=== PATIENT | male | born 1965 | race Caucasian/White ===

== ENCOUNTER → 2018-10-23 | Outpatient (CLI) | payer OTHER, MEDICAID ==
--- NOTE | 2018-10-23 16:43 | RADIOLOGY REPORT (SQ) ---
EXAM DESCRIPTION: KNEE BILATERAL 1-2 VIEWS COMPLETED DATE/TIME: 10/23/2018 4:30 pm REASON FOR STUDY: BILATERAL PRIMARY OSTEOARTHRITIS OF KNEE M17.0 BILATERAL PRIMARY OSTEOARTHRITIS O F KNEE COMPARISON: None. NUMBER OF VIEWS: Two views. TECHNIQUE: AP and lateral radiographic images acquired of the right and left knee. LIMITATIONS: None. FINDINGS: MINERALIZATION: Normal. BONES: No acute fracture or dislocation. No worrisome bone lesions. No significant osteophytes. JOINT: There is joint space narrowing in the patellofemoral compartments bilaterally. Medial and lat eral joint spaces are symmetric and fairly well-maintained. OTHER: No other significant finding. IMPRESSION: Joint space narrowing in the patellofemoral compartments bilaterally. No other signific ant findings. TECHNICAL DOCUMENTATION: JOB ID: [id number]- All Rights Reserved Reading location - IP/workstation name: [email or web address]
== END ==
LOC: OD 16:12
PROVIDERS: ATTEND Internal Medicine
DX: M17.0 Bilateral primary osteoarthritis of knee (principal)

== ENCOUNTER 2019-09-25 13:15 | Inpatient (IN) | payer MEDICARE, MEDICAID ==
[2019-09-25 15:23] LABS: ALBUMIN 3.5 g/dL (3.5-5.0); ALKALINE PHOSPHATASE 67 U/L (38-126); ANION GAP 10 (5-19); ASPARTATE AMINO TRANSFERASE 16 U/L (17-59); BLOOD UREA NITROGEN 57 mg/dL (7-20); CALCIUM 8.5 mg/dL (8.4-10.2); CARBON DIOXIDE 17 mmol/L (22-30); CHLORIDE 106 mmol/L (98-107); GLUCOSE 133 mg/dL (75-110); POTASSIUM 4.8 mmol/L (3.6-5.0); TOTAL PROTEIN 6.1 g/dL (6.3-8.2)
[2019-09-25 15:24] LABS: BILIRUBIN,TOTAL < 0.1 mg/dL (0.2-1.3)
[2019-09-25 15:25] LABS: ALCOHOL < 10 mg/dL (NONE DETECTED)
[2019-09-25 15:38] LABS: MEAN CORPUSCULAR HEMOGLOBIN 28.2 pg (27.0-33.4); MEAN CORPUSCULAR HGB CONC 31.5 g/dL (32.0-36.0); MEAN CORPUSCULAR VOLUME 89 fl (80-97); PLATELET COUNT 207 10^3/uL (150-450); RED BLOOD COUNT 1.44 10^6/uL (4.35-5.55); RED CELL DISTRIBUTION WIDTH 24.8 % (11.5-14.0); WHITE BLOOD COUNT 11.3 10^3/uL (4.0-10.5)
[2019-09-25 15:58] LABS: HEMATOCRIT 12.9 % (37.9-51.0)
[2019-09-25 16:00] LABS: HEMOGLOBIN 4.1 g/dL (13.5-17.0)
[2019-09-25 16:02] LABS: ABSOLUTE LYMPHOCYTES# (MANUAL) 1.1 10^3/uL (0.5-4.7); ABSOLUTE MONOCYTES # (MANUAL) 0.5 10^3/uL (0.1-1.4); ANISOCYTOSIS 3+; BASOPHILS % (MANUAL) 0 % (0-2); EOSINOPHILS % (MANUAL) 0 % (0-6); LYMPHOCYTES % (MANUAL) 10 % (13-45); MONOCYTES % (MANUAL) 4 % (3-13); PLATELET COMMENT ADEQUATE; PLATELET LARGE PRESENT; SEGMENTED NEUTROPHILS % (MAN) 86 % (42-78); TOTAL CELLS COUNTED 100
[2019-09-25 16:04] LABS: HYPOCHROMASIA 1+; OVALOCYTES 1+; POIKILOCYTOSIS 1+; POLYCHROMASIA SLIGHT; TARGET CELLS SLIGHT
[2019-09-25] MEDS ORDERED: NORMAL SALINE 250 ML IV PRN ×6 (16:20→22:46)
[2019-09-25] MEDS ORDERED: ACETAMINOPHEN 325 MG TABLET PO PRN (16:20)
[2019-09-25] MEDS ORDERED: PANTOPRAZOLE SODIUM 40 MG VIAL IV ONE ×2 (16:30→23:25)
--- NOTE | 2019-09-25 17:42 | RADIOLOGY REPORT (SQ) ---
EXAM DESCRIPTION: CT ABD/PELVIS NO ORAL OR IV IMAGES COMPLETED DATE/TIME: 09/25/2019 4:18 pm REASON FOR STUDY: gibleed/melena/anemia. Diffuse abdominal pain. No previous surgery. COMPARISON: None. TECHNIQUE: CT scan of the abdomen and pelvis performed without intravenous or oral contrast. Images reviewed with lung, soft tissue, and bone windows. Reconstructed coronal and sagittal MPR images revi ewed. All images stored on PACS. All CT scanners at this facility use dose modulation, iterative reconstruction, and/or weight based d osing when appropriate to reduce radiation dose to as low as reasonably achievable (ALARA). [facility]: Dose Right [facility]: CareDose [facility]: Dose Right [facility]: Teradose 4D [facility]: [employer] RADIATION DOSE: CT Rad equipment meets quality standard of care and radiation dose reduction techniq ues were employed. CTDIvol: 4.9 mGy. DLP: 266 mGy-cm.mGy. LIMITATIONS: None. FINDINGS: LOWER CHEST: No significant findings. No nodules or infiltrates. NON-CONTRASTED LIVER, SPLEEN, ADRENALS: Evaluation limited by lack of IV contrast. No identified sign ificant masses. PANCREAS: No masses. No peripancreatic inflammatory changes. GALLBLADDER: No identified stones by CT criteria. No inflammatory changes to suggest cholecystitis. RIGHT KIDNEY AND URETER: No suspicious masses. Assessment limited by lack of IV contrast. No signif icant calcifications. No hydronephrosis or hydroureter. LEFT KIDNEY AND URETER: Severely atrophic left kidney. No renal or ureteral calculi. No hydronephro sis. AORTA AND RETROPERITONEUM: No aneurysm. No retroperitoneal masses or adenopathy. BOWEL AND PERITONEAL CAVITY: Colonic diverticulosis without evidence of diverticulitis. No bowel wal l thickening. No significant inflammatory change. No bowel obstruction. APPENDIX: Normal. PELVIS, BLADDER, AND ABDOMINAL WALL:No abnormal masses. No free fluid. Bladder normal. BONES: Spondylosis and degenerative disc disease in the thoracic and lumbar spine. No suspicious bon e lesions. OTHER: No other significant finding. IMPRESSION: 1. Atrophic left kidney. No renal or ureteral calculi. No hydronephrosis. 2. Colonic diverticulosis without evidence of diverticulitis. No evidence of bowel obstruction or ma ss. COMMENT: Quality ID # [id number]: Final reports with documentation of one or more dose reduction techniques (e.g., Automated exposure control, adjustment of the mA and/or kV according to patient size, use of iterative reconstruction technique) TECHNICAL DOCUMENTATION: JOB ID: [id number] [employer]- All Rights Reserved Reading location - IP/workstation name: [email or web address]
--- NOTE | 2019-09-25 19:18 | EKG REPORT ---
SEVERITY:- ABNORMAL ECG - SINUS RHYTHM PROBABLE LEFT ATRIAL ABNORMALITY INCOMPLETE RIGHT BUNDLE BRANCH BLOCK : Confirmed by: Meliza Mclalister MD 25-Sep-2019 19:18:22
[2019-09-25 19:40] LABS: INTERNATIONAL RATION (INR) 1.08; PARTIAL THROMBOPLASTIN TIME 28.2 SEC (23.5-35.8)
[2019-09-25] MEDS ORDERED: LIDOCAINE 0.5% INJ-PF (5 MG/ML) 50 ML SDV NEB ONE (20:22)
[2019-09-25] MEDS ORDERED: NORMAL SALINE 1000 ML 1,000 ML IV ONE (20:27)
--- NOTE | 2019-09-25 21:54 | ER Document Report ---
Entered by PARAS LEMON SCRIBE 09/25/19 0443 Acting as scribe for:SILVER NAVA MD ED General - General Chief Complaint: Abdominal Pain Stated Complaint: NAUSEA,VOMITING,WEAKNESS Primary Care Provider: VINICIO MIRANDA MD [Primary Care Provider] - Follow up as needed Information source: Patient Notes: This 54-year-old male presents to the emergency department complaining of dark stools for the past three days. Patient reports associated abdominal pain and generalized weakness. Patient describes his abdominal pain as diffuse. Patient explains that he has had ulcers since he was [age] years old. Patient states that he has not had any issues with ulcers for decades. TRAVEL OUTSIDE OF THE [place] IN LAST 30 DAYS: No - Related Data Allergies/Adverse Reactions: No Known Allergies Allergy (Verified 09/25/19 15:18) Past Medical History - General Information source: Patient - Social History Smoking Status: Current Every Day Smoker Cigarette use (# per day): Yes Chew tobacco use (# tins/day): No Frequency of alcohol use: None Family History: Reviewed & Not Pertinent Patient has homicidal ideation: No GI Medical History: Reports: Hx Ulcer Surgical Hx: Negative Review of Systems - Review of Systems Constitutional: See HPI, Weakness EENT: No symptoms reported Cardiovascular: No symptoms reported Respiratory: No symptoms reported Gastrointestinal: See HPI, Abdominal pain, Black stools Genitourinary: No symptoms reported Male Genitourinary: No symptoms reported Musculoskeletal: No symptoms reported Skin: No symptoms reported Hematologic/Lymphatic: No symptoms reported Neurological/Psychological: No symptoms reported -: Yes All other systems reviewed and negative Physical Exam - Vital signs Vitals: Temp Pulse BP 97.9 F 106 H 118/44 L 09/25/19 14:09 09/25/19 14:09 09/25/19 14:09 - Notes Notes: Physical Exam: General: Alert, appears well. HEENT: Normocephalic. Atraumatic. PERRL. Extraocular movements intact. Oropharynx clear. Conjunctiva pale. Neck: Supple. Non-tender. Respiratory: No respiratory distress. Clear and equal breath sounds bilaterally. Cardiovascular: Regular rate and rhythm. Abdominal: Normal Inspection. Non-tender. No distension. Normal Bowel Sounds. Rectal: Melena stools that is guaiac positive. Back: No gross abnormalities. Extremities: Moves all four extremities. Upper extremities: Normal inspection. Normal ROM. Capillary refill sluggish. Pale nail beds. Lower extremities: Normal inspection. No edema. Normal ROM. Neurological: Normal cognition. AAOx4. Normal speech. Psychological: Normal affect. Normal Mood. Skin: Warm. Dry. Pale. conjunctive pale cap refil sluggish pale nail beds. stool melena guaiac postivie. Course - Re-evaluation Re-evalutation: 09/25/19 20:24 Patient hemodynamically stable not showing any cardiovascular compromise of his anemia at this time. 09/25/19 20:[address] Miranda who is the primary attending of patient. Dr. Miranda is aware that Dr. Candelaria is medical communication specialist as a surgical callus this weekend and is available to do endoscopy of patient and track patient with him as needed. Dr. Miranda decided that he was placing patient in the IMCU. Case was discussed with Dr. Candelaria the on-call surgicaist, and he recommended that we put an NG tube down to determine if there is an upper GI bleed and if so I would notify him of such. Thus far the patient has been refusing and uncooperative with the NG tube therefore were given him a lidocaine nebulizer to anesthetize back of his throat so he would allow us to keep the NG tube in. Once that procedure is done we will then know whether or not patient has any active upper GI bleed and to notify Dr. Candelaria if that is present. Inasmuch as Dr. Candelaria requested that patient be placed in the ICU Dr. Miranda at the my discussion with him said he was placing patient in the IMCU. 09/25/19 20:32 Currently patient is still pending transfusion of packed red blood cells as well as NG tube placement. Patient remains hemodynamically stable. - Vital Signs Vital signs: Temp Pulse Resp BP Pulse Ox 99.7 F 84 16 119/51 L 100 09/25/19 21:25 09/25/19 21:25 09/25/19 21:25 09/25/19 21:25 09/25/19 21:25 09/25/19 20:24 Vital signs as reported blood pressure stable tachycardic at 106. - Laboratory Result Diagrams: 09/25/19 15:24 09/25/19 14:35 Laboratory results interpreted by me: 09/25/19 09/25/19 09/25/19 14:35 15:14 15:24 WBC 11.3 H RBC 1.44 L Hgb 4.1 L* Hct 12.9 L* MCHC 31.5 L RDW 24.8 H Seg Neuts % (Manual) 86 H Lymphocytes % (Manual) 10 L Abs Neuts (Manual) 9.7 H Sodium 133.3 L Carbon Dioxide 17 L BUN 57 H Creatinine 2.36 H Est GFR ( Amer) 35 L Est GFR (MDRD) Non-Af 29 L Glucose 133 H POC Glucose 136 H Total Bilirubin < 0.1 L AST 16 L Total Protein 6.1 L Crossmatch 09/25/19 15:28 WBC RBC Hgb Hct MCHC RDW Seg Neuts % (Manual) Lymphocytes % (Manual) Abs Neuts (Manual) Sodium Carbon Dioxide BUN Creatinine Est GFR ( Amer) Est GFR (MDRD) Non-Af Glucose POC Glucose Total Bilirubin AST Total Protein Crossmatch See Detail 09/25/19 20:24 Laboratories show a hemoglobin 4.1. BUN/creatinine elevated at 57 2.3 CO2 17. - Diagnostic Test Radiology reviewed: Image reviewed, Reports reviewed Radiology results interpreted by me: 09/25/19 20:26 CT scan of abdomen and pelvis shows diverticulosis without diverticulitis atrophic left kidney otherwise no hydronephrosis or any stones seen. Critical Care Note - Critical Care Note Total time excluding time spent on procedures (mins): 39 - Management of IV fluids blood transfusion for transfusions and cardiac monitoring. Discharge - Discharge Clinical Impression: GI bleed, Anemia, Melena Condition: Fair Disposition: ADMITTED INPATIENT Admitting Provider: Liz Unit Admitted: IMCU Referrals: VINICIO MIRANDA MD [Primary Care Provider] - Follow up as needed I personally performed the services described in the documentation, reviewed and edited the documentation which was dictated to the scribe in my presence, and it accurately records my words and actions.
[2019-09-25] MEDS ORDERED: LORAZEPAM INJ 2 MG/1 ML VIAL IV ONE (21:59)
[2019-09-25] MEDS ORDERED: ROCURONIUM BROMIDE INJ 50 MG/5 ML VIAL IV ONE (22:00)
[2019-09-25] MEDS ORDERED: DEXTROSE 50%-WATER 25 GM/50 ML DISP.SYRIN IV PRN ×2 (22:46)
[2019-09-25] MEDS ORDERED: DEXTROSE 40% GEL 15 GM TUBE PO PRN ×2 (22:46)
[2019-09-25] MEDS ORDERED: GLUCAGON,HUMAN RECOMB 1 MG INJ SUBCUT PRN (22:46)
[2019-09-25 23:16] LABS: ABSOLUTE LYMPHOCYTES (AUTO) 1.6 10^3/uL (0.5-4.7); ABSOLUTE MONOCYTES (AUTO) 0.9 10^3/uL (0.1-1.4); ABSOLUTE NEUT (AUTO) 7.6 10^3/uL (1.7-8.2); BASOPHILS % (AUTO) 0.3 % (0-2); EOSINOPHILS % (AUTO) 0.1 % (0-6); HEMATOCRIT 18.2 % (37.9-51.0); LYMPHOCYTES % (AUTO) 16.1 % (13-45); MEAN CORPUSCULAR HEMOGLOBIN 29.3 pg (27.0-33.4); MEAN CORPUSCULAR HGB CONC 33.3 g/dL (32.0-36.0); MEAN CORPUSCULAR VOLUME 88 fl (80-97); MONOCYTES % (AUTO) 8.8 % (3-13); PLATELET COUNT 175 10^3/uL (150-450); RED BLOOD COUNT 2.08 10^6/uL (4.35-5.55); RED CELL DISTRIBUTION WIDTH 17.8 % (11.5-14.0); SEGMENTED NEUTROPHILS % (AUTO) 74.7 % (42-78); TOTAL CELLS COUNTED % (AUTO) 100 %; WHITE BLOOD COUNT 10.2 10^3/uL (4.0-10.5)
[2019-09-25 23:21] LABS: HEMOGLOBIN 6.1 g/dL (13.5-17.0)
[2019-09-25] MEDS: NORMAL SALINE 100 ML with PANTOPRAZOLE SODIUM 80 MG IV PRN ×2 (23:50)
--- NOTE | 2019-09-26 01:00 | PDOC CONSULTATION ---
Consultation Consult Date: 09/26/19 Attending physician:: ROMAIN NEWTON Provider Consulted: CHAI ROJAS Consult reason:: upper gi bleeding History of Present Illness Admission Date/PCP: 09/25/19 22:00 VINICIO MIRANDA MD History of Present Illness: OVIDIO CORONA is a 54 year old male Past Medical History Past Medical History: pt cannot provide medical hx due to confusion Cardiac Medical History: Reports: None Pulmonary Medical History: Reports: None Neurological Medical History: Reports: None Endocrine Medical History: Reports: None Renal/ Medical History: Reports: None Malignancy Medical History: Reports: None GI Medical History: Reports: Peptic Ulcer Disease Musculoskeltal Medical History: Reports: Arthritis Skin Medical History: Reports: None Psychiatric Medical History: Reports: Alcohol Dependency Denies: Depression Infectious Medical History: Reports: None Past Surgical History Past Surgical History: Reports: Cholecystectomy Social History Smoking Status: Current Some Day Smoker Number of Years Smokin Frequency of Alcohol Use: None Family History Family History: Reviewed & Not Pertinent Parental Family History Reviewed: No Children Family History Reviewed: NA Sibling(s) Family History Reviewed.: NA Medication/Allergy Allergies/Adverse Reactions: No Known Allergies Allergy (Verified 09/25/19 15:18) Review of Systems Constitutional: PRESENT: fatigue Eyes: ABSENT: as per HPI, visual disturbances, other Nose, Mouth, and Throat: ABSENT: as per HPI, headache(s), mouth pain, sore throat, vertigo, other Breasts: ABSENT: as per HPI, other Cardiovascular: ABSENT: as per HPI, chest pain, dyspnea on exertion, edema, orthropnea, palpitations, other Respiratory: ABSENT: as per HPI, cough, dyspnea, hemoptysis, sputum, other Gastrointestinal: PRESENT: abdominal pain, coffee ground emesis, hematemesis, vomiting Genitourinary: ABSENT: as per HPI, difficulty urinating, dysuria, hematuria, nocturia, other Musculoskeletal: ABSENT: as per HPI, back pain, deformity, joint swelling, muscle weakness, other Integumentary: ABSENT: as per HPI, diaphoresis, erythema, lesions, pruritus, rash, wounds, other Neurological: ABSENT: as per HPI, abnormal gait, abnormal movements, abnormal speech, confusion, convulsions, dizziness, focal weakness, frequent falls, lack of coordination, memory loss, numbness, paresthesias, restless legs, syncope, tingling, tremor(s), vertigo, weakness, other Psychiatric: ABSENT: as per HPI, anxiety, depression, hallucinations, homidical ideation, suicidal ideation, other Endocrine: ABSENT: as per HPI, cold intolerance, flushing, heat intolerance, menstrual abnormalities, polydipsia, polyphagia, polyuria, other Hematologic/Lymphatic: ABSENT: as per HPI, easy bleeding, easy bruising, lymphadenopathy, other Allergic/Immunologic: ABSENT: as per HPI, seasonal rhinorrhea, other Physical Exam Vital Signs: Temp Pulse Resp BP Pulse Ox 98.2 F 88 16 127/60 H 99 09/25/19 23:39 09/25/19 23:39 09/25/19 23:39 09/25/19 23:39 09/25/19 23:39 Intake & Output 09/24/19 09/25/19 09/26/19 06:59 06:59 06:59 Intake Total 600 Balance 600 Weight 65.7 kg General appearance: PRESENT: disheveled Head exam: PRESENT: atraumatic Eye exam: PRESENT: EOMI Ear exam: PRESENT: normal external ear exam Mouth exam: PRESENT: moist Teeth exam: PRESENT: poor dentation Neck exam: PRESENT: full ROM Respiratory exam: PRESENT: clear to auscultation baljinder Cardiovascular exam: PRESENT: RRR Pulses: PRESENT: normal radial pulses, normal femoral pulses Vascular exam: PRESENT: normal capillary refill, pallor Breast: PRESENT: Normal GI/Abdominal exam: PRESENT: soft Rectal exam: PRESENT: black stool Extremities exam: PRESENT: full ROM Musculoskeletal exam: PRESENT: full ROM Neurological exam: PRESENT: alert, awake, oriented to person, oriented to place Skin exam: PRESENT: dry Results Laboratory Results: 09/25/19 22:45 09/25/19 14:35 09/25/19 09/25/19 09/25/19 14:35 14:35 15:24 WBC Cancelled 11.3 H RBC Cancelled 1.44 L Hgb Cancelled 4.1 L* Hct Cancelled 12.9 L* MCV Cancelled 89 MCH Cancelled 28.2 MCHC Cancelled 31.5 L RDW Cancelled 24.8 H Plt Count Cancelled 207 Seg Neutrophils % Cancelled Not Reportable Sodium 133.3 L Potassium 4.8 Chloride 106 Carbon Dioxide 17 L Anion Gap 10 BUN 57 H Creatinine 2.36 H Est GFR ( Amer) 35 L Glucose 133 H Calcium 8.5 Magnesium 1.8 Total Bilirubin < 0.1 L AST 16 L Alkaline Phosphatase 67 Total Protein 6.1 L Albumin 3.5 Blood Type Antibody Screen 09/25/19 09/25/19 15:28 22:45 WBC 10.2 RBC 2.08 L Hgb 6.1 L Hct 18.2 L MCV 88 MCH 29.3 MCHC 33.3 RDW 17.8 H Plt Count 175 Seg Neutrophils % 74.7 Sodium Potassium Chloride Carbon Dioxide Anion Gap BUN Creatinine Est GFR ( Amer) Glucose Calcium Magnesium Total Bilirubin AST Alkaline Phosphatase Total Protein Albumin Blood Type O POSITIVE Antibody Screen NEGATIVE Impressions: Abdomen/Pelvis CT 09/25/19 16:27 IMPRESSION: 1. Atrophic left kidney. No renal or ureteral calculi. No hydronephrosis. 2. Colonic diverticulosis without evidence of diverticulitis. No evidence of bowel obstruction or mass. Assessment & Plan - Plan Summary Plan Summary: pt presents with weakness and dizziness noted to have dark stools and hematemesis initial h/h 07/25.9 has received 2 units prbc with appropriate rise in h/h ng tube produced dark blood with reported clots by er physician now with min op of blood or sanguineous fluid pt currently receiving blood recommend impression ulcer disease vs varicies plan cont blood txn tonight would consider endoscopy when stable. surgery will follow.
--- NOTE | 2019-09-26 01:04 | RADIOLOGY REPORT (SQ) ---
EXAM DESCRIPTION: XR ABDOMEN 1 VIEW (KUB) COMPLETED DATE/TME: 09/26/2019 00:00 CLINICAL HISTORY: 54 years, Male, NG placement COMPARISON: CT 09/25/2019 NUMBER OF VIEWS: 1 TECHNIQUE: AP semierect abdomen LIMITATIONS: None. FINDINGS: Enteric tube with the tip in the left upper quadrant, likely in the body of the stomach. The bowel gas pattern is nonspecific. No free air IMPRESSION: Tip of the enteric tube likely in the stomach copyright 2011 [employer]- All Rights Reserved
[2019-09-26] MEDS ORDERED: HALOPERIDOL LACTATE INJ 5 MG/1 ML VIAL ONE (01:41)
--- NOTE | 2019-09-26 01:43 | CRITICAL CARE ADMISSION REPORT ---
<DIONISIO ANTHONY - Last Filed: 09/26/19 01:23> HPI Date:: 09/26/19 Time:: 00:30 Reason for ICU Reason:: GI Bleed Admission Date/Time & PCP: Admission Date/Time: 09/25/19 22:00 Primary Care Provider: VINICIO MIRANDA MD HPI: Mr. Abdulaziz Mireles is a 54-year-old male patient of Dr. Miranda with no known past medical history. Presented to the ED with a 2-day history of dizziness and fatigue was noted to have dark stools and hematemesis in the ED his initial H&H was 4.1/12.9. He received 2 units of PRBC with appropriate rise in his H&H to 6.1/18.2, CT scan of the abdomen pelvis was done which showed colonic diverticulosis without evidence of diverticulitis no evidence of bowel obstruction or mass. NG tube was placed and per the ER physician produced dark blood with clots, now with minimal output of coffee-ground drainage. Patient has had no history of a previous GI bleed, does state he has been taking ibuprofen for chronic generalized pain. He has remained hemodynamically stable with a heart rate 88 blood pressure 127/60 O2 sat 99% on room air. Dr. Candelaria was consulted and patient admitted to the ICU for further management. - Diagnosis/Plan (1) GI bleed Qualifiers: GI bleed type/associated pathology: unspecified gastrointestinal hemorrhage type Qualified Code(s): K92.2 - Gastrointestinal hemorrhage, unspecified Is this a current diagnosis for this admission?: Yes Plan: Upper GI bleed Will give 2 more units PRBC and recheck H&H Dr. Candelaria following he will consider endoscopy when stable Protonix drip NG tube to low intermittent suction Closely monitor H&H Past Medical History Cardiac Medical History: Reports: None Pulmonary Medical History: Reports: None Neurological Medical History: Reports: None Endocrine Medical History: Reports: None Renal/ Medical History: Reports: None Malignancy Medical History: Reports: None GI Medical History: Reports: Peptic Ulcer Disease Musculoskeltal Medical History: Reports: Arthritis Skin Medical History: Reports: None Psychiatric Medical History: Reports: Alcohol Dependency Denies: Depression Infectious Medical History: Reports: None Past Surgical History Past Surgical History: Reports: Cholecystectomy Social/Family History - Social History Smoking Status: Current Some Day Smoker Number of Years Smokin Frequency of Alcohol Use: None - Medication/Allergies Allergies/Adverse Reactions: No Known Allergies Allergy (Verified 09/25/19 15:18) Review of Systems All systems: reviewed and no additional remarkable complaints except as stated Physical Exam Vital Signs: Temp Pulse Resp BP Pulse Ox 98.2 F 88 16 127/60 H 99 09/25/19 23:39 09/25/19 23:39 09/25/19 23:39 09/25/19 23:39 09/25/19 23:39 Intake & Output 09/24/19 09/25/19 09/26/19 06:59 06:59 06:59 Intake Total 600 Balance 600 Weight 65.7 kg Weight/Height Weight 65.7 kg Height 5 ft 11 in General appearance: PRESENT: no acute distress, disheveled Mouth exam: PRESENT: moist, neck supple Neck exam: PRESENT: full ROM Respiratory exam: PRESENT: clear to auscultation baljinder Cardiovascular exam: PRESENT: RRR, +S1, +S2 Vascular exam: PRESENT: pallor GI/Abdominal exam: PRESENT: hypoactive bowel sounds Rectal exam: PRESENT: black stool Musculoskeletal exam: PRESENT: full ROM Neurological exam: PRESENT: alert, oriented to person, oriented to place, oriented to situation Psychiatric exam: PRESENT: agitated - Combative, other Focused psych exam: PRESENT: restlessness Tubes/Lines: PRESENT: Nasogastic Tube Laboratory/Radiographs Laboratory Results: 09/25/19 22:45 09/25/19 14:35 09/25/19 09/25/19 09/25/19 14:35 14:35 15:24 WBC Cancelled 11.3 H RBC Cancelled 1.44 L Hgb Cancelled 4.1 L* Hct Cancelled 12.9 L* MCV Cancelled 89 MCH Cancelled 28.2 MCHC Cancelled 31.5 L RDW Cancelled 24.8 H Plt Count Cancelled 207 Seg Neutrophils % Cancelled Not Reportable Sodium 133.3 L Potassium 4.8 Chloride 106 Carbon Dioxide 17 L Anion Gap 10 BUN 57 H Creatinine 2.36 H Est GFR ( Amer) 35 L Glucose 133 H Calcium 8.5 Magnesium 1.8 Total Bilirubin < 0.1 L AST 16 L Alkaline Phosphatase 67 Total Protein 6.1 L Albumin 3.5 Blood Type Antibody Screen 09/25/19 09/25/19 15:28 22:45 WBC 10.2 RBC 2.08 L Hgb 6.1 L Hct 18.2 L MCV 88 MCH 29.3 MCHC 33.3 RDW 17.8 H Plt Count 175 Seg Neutrophils % 74.7 Sodium Potassium Chloride Carbon Dioxide Anion Gap BUN Creatinine Est GFR ( Amer) Glucose Calcium Magnesium Total Bilirubin AST Alkaline Phosphatase Total Protein Albumin Blood Type O POSITIVE Antibody Screen NEGATIVE Impressions: Abdomen/Pelvis CT 09/25/19 16:27 IMPRESSION: 1. Atrophic left kidney. No renal or ureteral calculi. No hydronephrosis. 2. Colonic diverticulosis without evidence of diverticulitis. No evidence of bowel obstruction or mass. KUB X-Ray 09/26/19 00:00 IMPRESSION: Tip of the enteric tube likely in the stomach copyright 2011 [employer]- All Rights Reserved All labs, radiographs, diagnostic studies and EKGs were personally reviewed: Yes In addition, reports of radiographic and diagnostic studies were read: Yes Critical Time Critical Time (minutes): 65 -: The care of a critically ill patient is dynamic. This note represents a static moment in the admission process. Orders and treatments may be given simultaneously and urgently, and time is not chemical sales representative of the treatment process. This patient requires Critical Care secondary to life threatening organ or limb dysfunction. Without Critical Care services, the patient is at risk for increased mortality and morbidity. <ROMAIN NEWTON - Last Filed: 09/26/19 07:41> HPI Admission Date/Time & PCP: Admission Date/Time: 09/25/19 22:00 Primary Care Provider: VINICIO MIRANDA MD Plan Summary: I personally discussed this case and care with MARLON Anthony. In addition to her note my addended note is in the progress notes which is linked to my further care of the patient beyond the nurse practitioner. I am in agreement with plans findings and care. Please see my note for further details Physical Exam Vital Signs: Temp Pulse Resp BP Pulse Ox 97.7 F 81 24 H 130/60 H 100 09/26/19 05:54 09/26/19 05:54 09/26/19 06:19 09/26/19 06:19 09/26/19 06:19 Intake & Output 09/25/19 09/26/19 09/27/19 06:59 06:59 06:59 Intake Total 1451 34 Output Total 350 Balance 1101 34 Weight 65.7 kg Weight/Height Weight 65.7 kg Height 5 ft 11 in Laboratory/Radiographs Laboratory Results: 09/26/19 04:29 09/26/19 04:29 09/25/19 09/25/19 09/25/19 14:35 14:35 15:24 WBC Cancelled 11.3 H RBC Cancelled 1.44 L Hgb Cancelled 4.1 L* Hct Cancelled 12.9 L* MCV Cancelled 89 MCH Cancelled 28.2 MCHC Cancelled 31.5 L RDW Cancelled 24.8 H Plt Count Cancelled 207 Seg Neutrophils % Cancelled Not Reportable Carbonic Acid HCO3/H2CO3 Ratio ABG pH ABG pCO2 ABG pO2 ABG HCO3 ABG O2 Saturation ABG Base Excess FiO2 Sodium 133.3 L Potassium 4.8 Chloride 106 Carbon Dioxide 17 L Anion Gap 10 BUN 57 H Creatinine 2.36 H Est GFR ( Amer) 35 L Glucose 133 H Calcium 8.5 Phosphorus Magnesium 1.8 Total Bilirubin < 0.1 L AST 16 L Alkaline Phosphatase 67 Total Protein 6.1 L Albumin 3.5 Urine Color Urine Appearance Urine pH Ur Specific [place] Urine Protein Urine Glucose (UA) Urine Ketones Urine Blood Urine Nitrite Ur Leukocyte Esterase Urine WBC (Auto) Urine RBC (Auto) Blood Type Antibody Screen 09/25/19 09/25/19 09/26/19 15:28 22:45 03:00 WBC 10.2 RBC 2.08 L Hgb 6.1 L Hct 18.2 L MCV 88 MCH 29.3 MCHC 33.3 RDW 17.8 H Plt Count 175 Seg Neutrophils % 74.7 Carbonic Acid HCO3/H2CO3 Ratio ABG pH ABG pCO2 ABG pO2 ABG HCO3 ABG O2 Saturation ABG Base Excess FiO2 Sodium Potassium Chloride Carbon Dioxide Anion Gap BUN Creatinine Est GFR ( Amer) Glucose Calcium Phosphorus Magnesium Total Bilirubin AST Alkaline Phosphatase Total Protein Albumin Urine Color STRAW Urine Appearance CLEAR Urine pH 5.0 Ur Specific [place] 1.013 Urine Protein 30 H Urine Glucose (UA) NEGATIVE Urine Ketones NEGATIVE Urine Blood SMALL H Urine Nitrite NEGATIVE Ur Leukocyte Esterase NEGATIVE Urine WBC (Auto) 0 Urine RBC (Auto) 0 Blood Type O POSITIVE Antibody Screen NEGATIVE 09/26/19 09/26/19 09/26/19 04:29 04:29 05:30 WBC 10.4 RBC 2.47 L Hgb 7.2 L Hct 21.4 L MCV 86 MCH 29.1 MCHC 33.7 RDW 16.8 H Plt Count 166 Seg Neutrophils % 77.6 Carbonic Acid 1.00 L HCO3/H2CO3 Ratio 15:1 ABG pH 7.30 L ABG pCO2 33.3 L ABG pO2 63.1 L ABG HCO3 15.8 L ABG O2 Saturation 90.1 L ABG Base Excess -9.8 FiO2 45% Sodium 136.0 L Potassium 4.0 Chloride 112 H Carbon Dioxide 16 L Anion Gap 8 BUN 50 H Creatinine 1.92 H Est GFR ( Amer) 44 L Glucose 128 H Calcium 7.9 L Phosphorus 3.7 Magnesium 1.7 Total Bilirubin 0.3 AST 18 Alkaline Phosphatase 49 Total Protein 5.0 L Albumin 2.7 L Urine Color Urine Appearance Urine pH Ur Specific [place] Urine Protein Urine Glucose (UA) Urine Ketones Urine Blood Urine Nitrite Ur Leukocyte Esterase Urine WBC (Auto) Urine RBC (Auto) Blood Type Antibody Screen Impressions: Abdomen/Pelvis CT 09/25/19 16:27 IMPRESSION: 1. Atrophic left kidney. No renal or ureteral calculi. No hydronephrosis. 2. Colonic diverticulosis without evidence of diverticulitis. No evidence of bowel obstruction or mass. Chest X-Ray 09/26/19 00:00 IMPRESSION: Endotracheal tube in appropriate position. KUB X-Ray 09/26/19 00:00 IMPRESSION: Tip of the enteric tube likely in the stomach copyright 2011 [employer]- All Rights Reserved Critical Time -: The care of a critically ill patient is dynamic. This note represents a static moment in the admission process. Orders and treatments may be given simultaneously and urgently, and time is not chemical sales representative of the treatment process. This patient requires Critical Care secondary to life threatening organ or limb dysfunction. Without Critical Care services, the patient is at risk for increased mortality and morbidity.
[2019-09-26] MEDS ORDERED: DEXMEDETOMIDINE IN 0.9 % NACL 400 MCG/100 ML RTUPB IV ONE (01:56)
[2019-09-26] MEDS ORDERED: HALOPERIDOL LACTATE INJ 5 MG/1 ML VIAL IV ONE ×2 (02:00→03:30)
[2019-09-26] MEDS ORDERED: ETOMIDATE INJ/PF 20 MG/10 ML SDV IV ONE (02:07)
[2019-09-26] MEDS: PROPOFOL 1,000 MG/100 ML INFUS..BTL IV PRN ×2 (03:11→11:48)
[2019-09-26] MEDS ORDERED: PROPOFOL 1,000 MG/100 ML INFUS..BTL IV ONE (03:11)
--- NOTE | 2019-09-26 03:15 | RADIOLOGY REPORT (SQ) ---
CLINICAL HISTORY: ETT placement COMPARISON: 08/02/2014. TECHNIQUE: XR CHEST 1 VIEW 09/26/2019 12:00 AM CDT FINDINGS: Cardiac silhouette is normal in size. Lungs are clear without consolidation, atelectasis, mass or edema. There is no pleural effusion. There is no pneumothorax. There are no acute osseous findings. Endotracheal tube tip is in the mid to upper trachea. NG tube tip is in the stomach. Left diaphragm is mildly elevated. IMPRESSION: Endotracheal tube in appropriate position.
[2019-09-26 03:17] LABS: APPEARANCE,URINE CLEAR; BILIRUBIN,URINE NEGATIVE (NEGATIVE); COLOR,URINE STRAW; GLUCOSE, URINE NEGATIVE (NEGATIVE); KETONES,URINE NEGATIVE (NEGATIVE); LEUKOCYTE ESTERASE,URINE NEGATIVE (NEGATIVE); NITRITE,URINE NEGATIVE (NEGATIVE); PROTEIN,URINE 30 mg/dL (NEGATIVE); URINE SPECIFIC GRAVITY 1.013; UROBILINOGEN,URINE NEGATIVE mg/dL (<2.0)
[2019-09-26 03:32] LABS: URINE AMPHETAMINES SCREEN NEGATIVE; URINE BARBITURATES SCREEN NEGATIVE; URINE BENZODIAZEPINES SCREEN NEGATIVE; URINE COCAINE SCREEN NEGATIVE; URINE MARIJUANA (THC) SCREEN NEGATIVE; URINE METHADONE SCREEN NEGATIVE; URINE PHENCYCLIDINE SCREEN NEGATIVE
--- NOTE | 2019-09-26 03:32 | Operative Report ---
Bedside Procedure - History of Present Illness History of Present Illness: Mr. Abdulaziz Mireles is a 54-year-old male patient of Dr. Hill with no known past medical history. Presented to the ED with a 2-day history of dizziness and fatigue was noted to have dark stools and hematemesis in the ED his initial H&H was 4.1/12.9. He received 2 units of PRBC with appropriate rise in his H&H to 6.1/18.2, CT scan of the abdomen pelvis was done which showed colonic diverticulosis without evidence of diverticulitis no evidence of bowel obstruction or mass. NG tube was placed and per the ER physician produced dark blood with clots, now with minimal output of coffee-ground drainage. Patient has had no history of a previous GI bleed, does state he has been taking ibuprofen for chronic generalized pain. He has remained hemodynamically stable with a heart rate 88 blood pressure 127/60 O2 sat 99% on room air. Dr. Candelaria was consulted and patient admitted to the ICU for further management. Indication for Procedure: Airway Protection Provider: DIONISIO ANTHONY - Additional Procedures Intbation Time performed: 02:55 Notes: Indication: Airway Protection Provider: NEHEMIAH Mackay A timeout was completed verifying correct patient and procedure. The patient was placed in a flat position sedation was obtained using etomidate 20 mg, rocuronium 50 mg. The patient was ventilated using an Ambu bag. The glide scope MAC 3 blade was used and inserted into the oropharynx at which time there was a grade 1 view of the vocal cords. Vocal cords appeared compressed unable t o pass a #8 tube, unable to pass a 7.5 tube, patient began to desaturate and again was ventilated with the Ambu bag after obtaining a O2 sat of 99% the glide scope MAC 3 blade was again inserted into the oropharynx, a 6.5 ETT was inserted and visualized going through the vocal cords the stylet was removed colorimetric change was visualized on the CO2 meter breath sounds were heard in both lung fie lds equally. The endotracheal tube was placed at 23 cm at the lip. A chest x- ray was obtained to assess for pneumothorax and verify endotracheal tube placement.
[2019-09-26] MEDS ORDERED: MIDAZOLAM 2 MG/2 ML INJ IV ONE (03:43)
[2019-09-26] MEDS ORDERED: NORMAL SALINE 1000 ML 1,000 ML IV PRN (03:44)
[2019-09-26] MEDS ORDERED: MIDAZOLAM 2 MG/2 ML INJ ONE (03:47)
[2019-09-26] MEDS ORDERED: PHARMACY COMMUNICATION ORDER MC NR (04:00)
[2019-09-26] MEDS ORDERED: ACETAMINOPHEN 325 MG TABLET NG PRN (04:30)
[2019-09-26] MEDS: MIDAZOLAM HCL 50 MG/100 ML RTUINJ IV PRN ×4 (04:34→16:50)
[2019-09-26] MEDS ORDERED: MIDAZOLAM HCL 50 MG/100 ML RTUINJ ONE (04:34)
[2019-09-26 04:59] LABS: ABSOLUTE LYMPHOCYTES (AUTO) 1.3 10^3/uL (0.5-4.7); ABSOLUTE NEUT (AUTO) 8.1 10^3/uL (1.7-8.2); BASOPHILS % (AUTO) 0.4 % (0-2); EOSINOPHILS % (AUTO) 0.4 % (0-6); HEMATOCRIT 21.4 % (37.9-51.0); LYMPHOCYTES % (AUTO) 12.1 % (13-45); MEAN CORPUSCULAR HEMOGLOBIN 29.1 pg (27.0-33.4); MEAN CORPUSCULAR HGB CONC 33.7 g/dL (32.0-36.0); MEAN CORPUSCULAR VOLUME 86 fl (80-97); MONOCYTES % (AUTO) 9.5 % (3-13); PLATELET COUNT 166 10^3/uL (150-450); RED BLOOD COUNT 2.47 10^6/uL (4.35-5.55); RED CELL DISTRIBUTION WIDTH 16.8 % (11.5-14.0); SEGMENTED NEUTROPHILS % (AUTO) 77.6 % (42-78); TOTAL CELLS COUNTED % (AUTO) 100 %; WHITE BLOOD COUNT 10.4 10^3/uL (4.0-10.5)
[2019-09-26 05:00] LABS: INTERNATIONAL RATION (INR) 1.06; PROTHROMBIN TIME 13.8 SEC (11.4-15.4)
[2019-09-26 05:01] LABS: PARTIAL THROMBOPLASTIN TIME 25.8 SEC (23.5-35.8)
[2019-09-26 05:02] LABS: HEMOGLOBIN 7.2 g/dL (13.5-17.0)
[2019-09-26] MEDS ORDERED: DEXMEDETOMIDINE IN NS 400 MCG/100 ML RTUPB IV PRN (05:09)
[2019-09-26 05:19] LABS: ALBUMIN 2.7 g/dL (3.5-5.0); ALKALINE PHOSPHATASE 49 U/L (38-126); ANION GAP 8 (5-19); ASPARTATE AMINO TRANSFERASE 18 U/L (17-59); BILIRUBIN,TOTAL 0.3 mg/dL (0.2-1.3); BLOOD UREA NITROGEN 50 mg/dL (7-20); CALCIUM 7.9 mg/dL (8.4-10.2); CARBON DIOXIDE 16 mmol/L (22-30); CHLORIDE 112 mmol/L (98-107); GLUCOSE 128 mg/dL (75-110); PHOSPHORUS 3.7 mg/dL (2.5-4.5)
[2019-09-26 05:41] LABS: ARTERIAL BLOOD BASE EXCESS -9.8 mmol/L; ARTERIAL BLOOD FIO2 45%; ARTERIAL BLOOD HCO3 15.8 mmol/L (20-24); ARTERIAL BLOOD O2 SATURATION 90.1 % (94-98); ARTERIAL BLOOD PCO2 33.3 mmHg (35-45); ARTERIAL BLOOD PO2 63.1 mmHg (80-100); ARTERIAL BLOOD TOTAL CO2 16.9 mmol/L (23-27)
[2019-09-26 07:54] LABS: ABSOLUTE LYMPHOCYTES (AUTO) 1.1 10^3/uL (0.5-4.7); ABSOLUTE MONOCYTES (AUTO) 0.6 10^3/uL (0.1-1.4); ABSOLUTE NEUT (AUTO) 7.3 10^3/uL (1.7-8.2); BASOPHILS % (AUTO) 0.4 % (0-2); EOSINOPHILS % (AUTO) 0.3 % (0-6); HEMATOCRIT 25.8 % (37.9-51.0); HEMOGLOBIN 8.8 g/dL (13.5-17.0); LYMPHOCYTES % (AUTO) 12.3 % (13-45); MEAN CORPUSCULAR HEMOGLOBIN 29.6 pg (27.0-33.4); MEAN CORPUSCULAR VOLUME 87 fl (80-97); PLATELET COUNT 164 10^3/uL (150-450); RED BLOOD COUNT 2.96 10^6/uL (4.35-5.55); RED CELL DISTRIBUTION WIDTH 16.8 % (11.5-14.0); TOTAL CELLS COUNTED % (AUTO) 100 %; WHITE BLOOD COUNT 9.1 10^3/uL (4.0-10.5)
[2019-09-26] MEDS ORDERED: FENTANYL CITRATE INJ/PF 100 MCG/2 ML AMPUL IV ONE (08:03)
[2019-09-26] MEDS: RINGERS SOLUTION,LACTATED 1,000 ML IV PRN (08:35)
--- NOTE | 2019-09-26 10:11 | RADIOLOGY REPORT (SQ) ---
EXAM DESCRIPTION: CT HEAD WITHOUT IMAGES COMPLETED DATE/TIME: 09/26/2019 9:16 am REASON FOR STUDY: AMS COMPARISON: MRI head without contrast 08/10/2014. TECHNIQUE: Axial images acquired through the brain without intravenous contrast. Images reviewed wi th bone, brain and subdural windows. Additional sagittal and coronal reconstructions were generated. Images stored on PACS. All CT scanners at this facility use dose modulation, iterative reconstruction, and/or weight based d osing when appropriate to reduce radiation dose to as low as reasonably achievable (ALARA). [facility]: Dose Right [facility]: CareDose [facility]: Dose Right [facility]: Teradose 4D [facility]: [email or web address] RADIATION DOSE: CT Rad equipment meets quality standard of care and radiation dose reduction techniq ues were employed. CTDIvol: 53.2 mGy. DLP: 1203 mGy-cm. mGy. LIMITATIONS: None. FINDINGS: VENTRICLES: Unchanged prominent ventricles secondary to involutional atrophy. CEREBRUM: No masses. No hemorrhage. No midline shift. No evidence for acute infarction. Few scatte red areas of low density predominantly within the periventricular white matter most likely chronic sm all vessel ischemic changes. CEREBELLUM: No masses. No hemorrhage. No alteration of density. No evidence for acute infarction. EXTRAAXIAL SPACES: No fluid collections. No masses. ORBITS AND GLOBE: No intra- or extraconal masses. Normal contour of globe without masses. CALVARIUM: No fracture. PARANASAL SINUSES: Layering secretions within the nasopharynx. Bubbly opacities within the bilateral sphenoid sinuses. SOFT TISSUES: No mass or hematoma. OTHER: Partially visualized endotracheal and nasogastric tubes. IMPRESSION: No acute intracranial hemorrhage, midline shift or mass effect. Chronic he was age related involutional chronic small vessel ischemic changes. Partially visualized endotracheal and nasogastric tubes. Layering secretions within the nasopharynx likely related to tube placement. Additional bubbly opacities within the sphenoid sinuses, which aga in may be related to recent tube placement, although acute sinusitis cannot be excluded. EVIDENCE OF ACUTE STROKE: NO. COMMENT: Quality ID # [id number]: Final reports with documentation of one or more dose reduction techniques (e.g., Automated exposure control, adjustment of the mA and/or kV according to patient size, use of iterative reconstruction technique) TECHNICAL DOCUMENTATION: JOB ID: [id number] [email or web address]- All Rights Reserved Reading location - IP/workstation name: [email or web address]
--- NOTE | 2019-09-26 10:17 | RADIOLOGY REPORT (SQ) ---
EXAM DESCRIPTION: CT SOFT TISSUE NECK WITHOUT IMAGES COMPLETED DATE/TIME: 09/26/2019 9:16 am REASON FOR STUDY: Weight loss, r/o malignancy COMPARISON: None. TECHNIQUE: Noncontrast scanning from skull base through lung apices with review of bone, soft tissue and lung windows. Reconstructed coronal and sagittal MPR images reviewed. All images stored on PAC S. All CT scanners at this facility use dose modulation, iterative reconstruction, and/or weight based d osing when appropriate to reduce radiation dose to as low as reasonably achievable (ALARA). [facility]: Dose Right [facility]: CareDose [facility]: Dose Right [facility]: Teradose 4D [facility]: [employer] RADIATION DOSE: CT Rad equipment meets quality standard of care and radiation dose reduction techniq ues were employed. CTDIvol: 13.4 mGy. DLP: 362 mGy-cm. mGy. LIMITATIONS: None. FINDINGS: SKULL BASE: Intact. MAJOR SALIVARY GLANDS: No solid or cystic masses. No inflammatory changes. LYMPHADENOPATHY: No adenopathy. MUCOSAL MASSES OR ASYMMETRY: No mucosal masses or asymmetry. LARYNX/CORDS: No abnormal findings. LUNG APICES: See dedicated CT of the chest. BONES: Mild to moderate multilevel degenerate changes of the spine. THYROID: Normal size. No masses. PARANASAL SINUSES: Clear. OTHER: Endotracheal tube terminating within the upper trachea. Partially visualized nasogastric tube . IMPRESSION: Limited noncontrast CT evaluation the neck without appreciable acute findings. Endotracheal tube terminating with the upper trachea. Partially visualized nasogastric tube. See dedicated CT of the chest. TECHNICAL DOCUMENTATION: JOB ID: [id number] Quality ID # [id number]: Final reports with documentation of one or more dose reduction techniques (e.g., Au tomated exposure control, adjustment of the mA and/or kV according to patient size, use of iterative reconstruction technique) 2010 [employer]- All Rights Reserved Reading location - IP/workstation name: [email or web address]
--- NOTE | 2019-09-26 10:29 | RADIOLOGY REPORT (SQ) ---
EXAM DESCRIPTION: CT CHEST WITHOUT IMAGES COMPLETED DATE/TIME: 09/26/2019 9:16 am REASON FOR STUDY: Weight loss, r/o malignancy COMPARISON: CT abdomen pelvis 09/25/2019 TECHNIQUE: CT scan performed of the chest without intravenous contrast. Images reviewed with lung, soft tissue and bone windows. Reconstructed coronal and sagittal MPR images reviewed. All images st ored on PACS. All CT scanners at this facility use dose modulation, iterative reconstruction, and/or weight based d osing when appropriate to reduce radiation dose to as low as reasonably achievable (ALARA). [facility]: Dose Right [facility]: CareDose [facility]: Dose Right [facility]: Teradose 4D [facility]: [employer] RADIATION DOSE: CT Rad equipment meets quality standard of care and radiation dose reduction techniq ues were employed. CTDIvol: 1.5 mGy. DLP: 55 mGy-cm. mGy. LIMITATIONS: No technical limitations. FINDINGS: LUNGS AND PLEURA: New bibasilar patchy airspace opacities and consolidation with air bronc hograms. Linear right apical airspace opacities and ground-glass opacification and mild traction bro nchiectasis. No large pleural effusion. No pneumothorax. HILAR AND MEDIASTINAL STRUCTURES: No identified masses or abnormal nodes. No obvious aneurysm. HEART AND VASCULAR STRUCTURES: No aneurysm. No pericardial effusion. UPPER ABDOMEN: No significant findings. Limited exam. THYROID AND OTHER SOFT TISSUES: No masses. No adenopathy. BONES: Moderate multilevel degenerate changes of the spine. HARDWARE: Endotracheal tube terminating 4.2 cm above the anya. Enteric tube terminating within the stomach. OTHER: No other significant findings. IMPRESSION: Bibasilar patchy airspace opacities and consolidation, new from CT abdomen performed 1 d ay prior. Differential considerations include aspiration/pneumonia, atelectasis, and pulmonary edema / hemorrhage. Linear right apical airspace opacities and ground-glass opacification with mild traction bronchiectas is suggestive of scarring, although an acute infectious process cannot be excluded. Appropriately positioned endotracheal and enteric tubes. TECHNICAL DOCUMENTATION: JOB ID: [id number] Quality ID # [id number]: Final reports with documentation of one or more dose reduction techniques (e.g., Au tomated exposure control, adjustment of the mA and/or kV according to patient size, use of iterative reconstruction technique) 2010 [employer]- All Rights Reserved Reading location - IP/workstation name: [email or web address]
[2019-09-26] MEDS: NORMAL SALINE 100 ML with PANTOPRAZOLE SODIUM 80 MG IV PRN ×2 (10:30)
[2019-09-26] MEDS: FENTANYL CITRATE/PF 600 MCG/60 ML BAG IV PRN ×2 (11:37→23:09)
--- NOTE | 2019-09-26 11:39 | Progress Note ---
Provider Note Provider Note: I personally saw and evaluated the patient after his admission by MANAGER GENERAL Sekou. There was significant issues with control of agitation and he had an acute encephalopathy. This progressed to the point that there was need for deeper sedation and concern for airway protection he was intubated. In discussion with the nurse practitioner who intubated him it appears that there was significant soft tissue changes and a very narrow tracheal orifice. CT scan obtained after intubation does not show any significant masses however it is possible given his extensive smoking and alcohol history that there is a tracheal mass. This will need to be evaluated when patient is suitable for liberation from mechanical ventilation. I reviewed his CT scan of his chest and his abdomen and pelvis. He does have significant emphysema but no masses are identifiable. His CT scan of chest today in comparison to yesterday does show evidence of what appears to be aspiration phenomenon. Will need to be vigilant to watch for active pneumonitis and or infection. Patient has anemia which was not hemodynamically significant. A hemoglobin of 4 without acute hemodynamic changes is indicative of a chronic longstanding bleeding issue. In that the NG tube did not show any blood I am concerned that this is of colonic origin and may represent a mass. The plan for this gentleman will be to perform an EGD while we have a appropriately sedated patient who would not be agitated and then progress to colonoscopy. We will begin prepar ation of lower GI tract as well. His hemoglobin has responded appropriately and he does not appear to be having an active extravasating type bleed. We will continue to monitor his hemoglobin and hematocrit appropriately. His acute encephalopathy and agitation appears to be related to alcohol withdrawal. There is some suggestion that this is been an ongoing issue. His toxicology screen was negative for any recreational ingestants. Given his negative alcohol level his presentation is indicative of a possible delirium related to acute alcohol withdrawal related encephalopathy. He has required significant amount of sedation in the form of propofol and Versed and I have made adjustments to this to try to reduce the amount of Versed he is receiving. We will continue supportive care in the ICU, continue on mechanical ventilation and follow-up on his EGD and colonoscopy studies. Given concern for alcohol use I have placed him on high-dose thiamine therapy as well as folate and zinc. We will also transition him to twice daily Protonix. Total critical care time 60 minutes excluding any procedures
[2019-09-26] MEDS ORDERED: PEG 3350/NA SULF,BICARB,CL/KCL 4000 ML PO ONE (13:00)
[2019-09-26] MEDS: PANTOPRAZOLE SODIUM 40 MG VIAL IV SCH ×2 (15:01→22:21)
[2019-09-26] MEDS: THIAMINE HCL 500 MG in NORMAL SALINE 50 ML IV SCH ×2 (15:07→15:23)
[2019-09-26] MEDS: FOLIC ACID 1 MG TABLET PO SCH (15:08)
[2019-09-26] MEDS: THIAMINE HCL 500 MG in NORMAL SALINE 250 ML IV SCH ×2 (15:28→22:22)
[2019-09-26 18:12] LABS: HEMATOCRIT 26.1 % (37.9-51.0); HEMOGLOBIN 8.5 g/dL (13.5-17.0); MEAN CORPUSCULAR HEMOGLOBIN 28.7 pg (27.0-33.4); MEAN CORPUSCULAR HGB CONC 32.7 g/dL (32.0-36.0); MEAN CORPUSCULAR VOLUME 88 fl (80-97); PLATELET COUNT 159 10^3/uL (150-450); RED BLOOD COUNT 2.98 10^6/uL (4.35-5.55); RED CELL DISTRIBUTION WIDTH 17.8 % (11.5-14.0); WHITE BLOOD COUNT 11.8 10^3/uL (4.0-10.5)
--- NOTE | 2019-09-26 20:45 | CDI QUERY ---
CDI Query CDI Review: Dear Provider: To better reflect your patients severity of illness, morbidity, and resource utilization Query Clinical indicators Please clarify and document if you are monitoring/ treating / evaluating any of the following conditions: Acute blood loss anemia Acute on chronic blood loss anemia Chronic blood loss anemia Anemia of chronic disease Unable to determine Other Per Critical Care Admission Notes: Presented to the ED with a 2-day history of dizziness and fatigue was noted to have dark stools and hematemesis in the ED his initial H&H was 4.1/12.9. He received 2 units of PRBC with appropriate rise in his H&H to 6.1/18.2, CT scan of the abdomen pelvis was done which showed colonic diverticulosis without evidence of diverticulitis no evidence of bowel obstruction or mass. NG tube was placed and per the ER physician produced dark blood with clots, now with minimal output of coffee-ground drainage. Patient has had no history of a previous GI bleed, does state he has been taking ibuprofen for chronic generalized pain. The terms probable, suspected, likely, possible or still to be ruled out may be used if you are unable to determine the exact nature of a condition. Thank you for your consideration, Clinical Documentation Physician [employer]visors VEL Herndon RN
--- NOTE | 2019-09-26 21:05 | CDI QUERY ---
CDI Query CDI Review: Dear Provider: To better reflect your patients severity of illness, morbidity, and resource utilization Query Clinical indicators Please clarify and document if you are monitoring / treating / evaluating any of the following: Acute kidney injury 2/2 ATN Acute renal failure CKD (please stage) Unable to determine Other Mr. Abdulaziz Mireles is a 54-year-old male patient of Dr. Hill with no known past medical history. Presented to the ED with a 2-day history of dizziness and fatigue was noted to have dark stools and hematemesis in the ED his initial H&H was 4.1/12.9. BUN / CR 57 / 2.36 The terms probable, suspected, likely, possible or still to be ruled out may be used if you are unable to determine the exact nature of a condition. Thank you for your consideration, Clinical Documentation Physician Advisors VLE Herndon RN
[2019-09-27] MEDS: MIDAZOLAM HCL 50 MG/100 ML RTUINJ IV PRN (00:15)
[2019-09-27] MEDS ORDERED: ACETAMINOPHEN SOLN 325 MG/10.15 ML UDCUP PO PRN (00:53)
[2019-09-27] MEDS ORDERED: PIPERACILLIN/TAZOBACTAM 4.5 GM VIAL IV SCH (01:00)
[2019-09-27] MEDS ORDERED: ACETAMINOPHEN SOLN 325 MG/10.15 ML UDCUP NG PRN ×2 (01:14→18:00)
[2019-09-27] MEDS ORDERED: PIPERACILLIN/TAZOBACTAM 4.5 GM VIAL IV ONE (01:55)
[2019-09-27] MEDS ORDERED: PIPERACILLIN SODIUM/TAZOBACTAM 4.5 GM in NORMAL SALINE 100 ML IV SCH (02:00)
[2019-09-27 03:32] LABS: ABSOLUTE EOSINOPHILS # (AUTO) 0.1 10^3/uL (0.0-0.6); ABSOLUTE LYMPHOCYTES (AUTO) 1.4 10^3/uL (0.5-4.7); ABSOLUTE NEUT (AUTO) 10.4 10^3/uL (1.7-8.2); BASOPHILS % (AUTO) 0.3 % (0-2); EOSINOPHILS % (AUTO) 0.4 % (0-6); HEMATOCRIT 22.6 % (37.9-51.0); LYMPHOCYTES % (AUTO) 10.9 % (13-45); MEAN CORPUSCULAR HGB CONC 33.5 g/dL (32.0-36.0); MEAN CORPUSCULAR VOLUME 87 fl (80-97); MONOCYTES % (AUTO) 7.9 % (3-13); PLATELET COUNT 178 10^3/uL (150-450); RED BLOOD COUNT 2.61 10^6/uL (4.35-5.55); RED CELL DISTRIBUTION WIDTH 17.2 % (11.5-14.0); SEGMENTED NEUTROPHILS % (AUTO) 80.5 % (42-78); TOTAL CELLS COUNTED % (AUTO) 100 %
[2019-09-27 03:35] LABS: INTERNATIONAL RATION (INR) 1.14; PARTIAL THROMBOPLASTIN TIME 33.7 SEC (23.5-35.8); PROTHROMBIN TIME 14.7 SEC (11.4-15.4)
[2019-09-27 03:42] LABS: HEMOGLOBIN 7.6 g/dL (13.5-17.0)
[2019-09-27 04:00] LABS: ALBUMIN 2.7 g/dL (3.5-5.0); ALKALINE PHOSPHATASE 51 U/L (38-126); ANION GAP 9 (5-19); ASPARTATE AMINO TRANSFERASE 35 U/L (17-59); BILIRUBIN,TOTAL 0.4 mg/dL (0.2-1.3); BLOOD UREA NITROGEN 32 mg/dL (7-20); CALCIUM 7.6 mg/dL (8.4-10.2); CARBON DIOXIDE 17 mmol/L (22-30); CHLORIDE 112 mmol/L (98-107); GLUCOSE 88 mg/dL (75-110); PHOSPHORUS 3.9 mg/dL (2.5-4.5); POTASSIUM 3.7 mmol/L (3.6-5.0)
[2019-09-27 04:30] LABS: CARCINOEMBRYONIC ANTIGEN 0.88 ng/mL (<3.0)
[2019-09-27 05:10] LABS: ARTERIAL BLOOD BASE EXCESS -8.6 mmol/L; ARTERIAL BLOOD H2CO3 0.97 mmol/L (1.05-1.35); ARTERIAL BLOOD HCO3 16.5 mmol/L (20-24); ARTERIAL BLOOD O2 SATURATION 94.6 % (94-98); ARTERIAL BLOOD PCO2 32.1 mmHg (35-45); ARTERIAL BLOOD PH 7.33 (7.35-7.45); ARTERIAL BLOOD PO2 76.2 mmHg (80-100); ARTERIAL BLOOD TOTAL CO2 17.5 mmol/L (23-27)
[2019-09-27 05:14] LABS: ARTERIAL BLOOD FIO2 30%
[2019-09-27] MEDS: THIAMINE HCL 500 MG in NORMAL SALINE 250 ML IV SCH ×3 (05:55→21:26)
[2019-09-27] MEDS: RINGERS SOLUTION,LACTATED 1,000 ML IV PRN (05:56)
--- NOTE | 2019-09-27 06:33 | RADIOLOGY REPORT (SQ) ---
AP Portable chest: 09/27/2019 5:30 AM CDT History: 54-year old patient with concern for aspiration. Comparison: Chest radiograph performed 09/26/2019. Findings: The cardiomediastinal silhouette is enlarged. No pneumothorax is seen. The right infrahilar infrahilar region demonstrates a new masslike opacity at the right infrahilar region. This may represent postobstructive atelectasis or aspiration/infection. Airspace opacities are again noted at the left lung base. An endotracheal tube tip projects approximately 3.3 cm above the anya. Impression: There are bilateral airspace opacities, right greater than left which appear similar to recent CT imaging but increased since prior chest radiograph. This may represent aspiration or increasing infection.
[2019-09-27] MEDS ORDERED: NORMAL SALINE 250 ML IV PRN ×2 (06:53)
[2019-09-27] MEDS: PROPOFOL 1,000 MG/100 ML INFUS..BTL IV PRN ×2 (08:00→14:07)
[2019-09-27] MEDS: FENTANYL CITRATE/PF 600 MCG/60 ML BAG IV PRN ×2 (08:31→14:07)
--- NOTE | 2019-09-27 10:20 | PDOC CRITICAL CARE PROG REPORT ---
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 Versed has been discontinued. On examination he appears heavily sedated and we are cautious in the assumption that it is related to the amount of Versed needed during his delirium state. He has remained hemodynamically stable however his hemoglobin hematocrit have slowly drifted down. He has not had hypotension associated with this. Nursing has noted increase in secretions and his chest x-ray shows an evolving right middle lobe infiltrate that may be consistent with an aspiration event. He has been started on antibiotics and cultures and Gram stain have been ordered. Review of systems relevant to events:: 09.27.2019: Patient is n.p.o. in anticipation for upper and lower endoscopy. He received a bowel prep in preparation for colonoscopy. We are concerned that his bleeding is coming from a lower but proximal GI source given the absence of blood in NG tube findings. Notably, during airway examination during intubation there appeared to be obstruction from a tongue mass. Reason for ICU Addmission:: GI Bleed - Medications: Medications reviewed and adjusted accordingly: Yes Vasopressors:: None Sedation:: Propofol and fentanyl. Propofol at 10 mics RASTs is -3 Physical Exam Vital Signs: Temp Pulse Resp BP Pulse Ox 100.8 F H 81 16 113/40 L 98 09/27/19 08:00 09/27/19 08:00 09/27/19 08:00 09/27/19 08:00 09/27/19 08:57 Intake & Output 09/26/19 09/27/19 09/28/19 06:59 06:59 06:59 Intake Total 1451 2597 48 Output Total 350 3820 150 Balance 1101 -1223 -102 Weight 65.7 kg 68.5 kg Weight/Height Weight 68.5 kg Height 5 ft 11 in General appearance: PRESENT: no acute distress, thin Exam: Intubated significantly older appearing chronically ill-appearing but nontoxic 54-year-old male who is minimally responsive only to noxious stimulus Head exam: PRESENT: atraumatic, normocephalic Eye exam: PRESENT: conjunctiva pink, other - Pupils are pinpoint. ABSENT: conjunctival injection, nystagmus, scleral icterus Ear exam: PRESENT: normal external ear exam Mouth exam: PRESENT: dry mucosa, neck supple, tongue midline Teeth exam: PRESENT: edentulous Neck exam: ABSENT: carotid bruit, JVD, lymphadenopathy, thyromegaly, tracheal deviation Respiratory exam: PRESENT: clear to auscultation baljinder, unlabored. ABSENT: accessory muscle use, rales, rhonchi, tachypnea, wheezes Cardiovascular exam: PRESENT: RRR, rubs, +S2 Vascular exam: PRESENT: normal capillary refill. ABSENT: pallor GI/Abdominal exam: PRESENT: normal bowel sounds, soft, other - Aorta is palpable. There are no palpable masses.. ABSENT: ascites, distended, guarding, hernia, mass, organolmegaly, rebound, tenderness Rectal exam: PRESENT: other - Rectal tube present and in place for stool collection Extremities exam: ABSENT: pedal edema Musculoskeletal exam: PRESENT: normal inspection. ABSENT: deformity, dislocation Neurological exam: PRESENT: altered, other - [place] Coma Scale is 1-1T-4 with minimal response to very noxious stimulus. Skin exam: PRESENT: dry, intact, normal color, warm. ABSENT: cyanosis, pallor, rash Tubes/Lines: PRESENT: Endotracheal Tube, Other - Orogastric tube, Chua type ur inary catheter, bowel maintenance colonic tube Laboratory/Radiographs Laboratory Results: 09/27/19 03:22 09/27/19 03:22 09/25/19 09/26/19 09/27/19 15:28 18:00 03:22 WBC 11.8 H 13.0 H RBC 2.98 L 2.61 L Hgb 8.5 L 7.6 L Hct 26.1 L 22.6 L MCV 88 87 MCH 28.7 29.0 MCHC 32.7 33.5 RDW 17.8 H 17.2 H Plt Count 159 178 Seg Neutrophils % 80.5 H Carbonic Acid HCO3/H2CO3 Ratio ABG pH ABG pCO2 ABG pO2 ABG HCO3 ABG O2 Saturation ABG Base Excess FiO2 Sodium Potassium Chloride Carbon Dioxide Anion Gap BUN Creatinine Est GFR ( Amer) Glucose Calcium Phosphorus Magnesium Total Bilirubin AST Alkaline Phosphatase Ammonia Total Protein Albumin Blood Type O POSITIVE Antibody Screen NEGATIVE 09/27/19 09/27/19 09/27/19 03:22 03:22 04:59 WBC RBC Hgb Hct MCV MCH MCHC RDW Plt Count Seg Neutrophils % Carbonic Acid 0.97 L HCO3/H2CO3 Ratio 17:1 ABG pH 7.33 L ABG pCO2 32.1 L ABG pO2 76.2 L ABG HCO3 16.5 L ABG O2 Saturation 94.6 ABG Base Excess -8.6 FiO2 30% Sodium 137.6 Potassium 3.7 Chloride 112 H Carbon Dioxide 17 L Anion Gap 9 BUN 32 H Creatinine 1.61 H Est GFR ( Amer) 54 L Glucose 88 Calcium 7.6 L Phosphorus 3.9 Magnesium 1.6 Total Bilirubin 0.4 AST 35 Alkaline Phosphatase 51 Ammonia < 8.7 L Total Protein 5.0 L Albumin 2.7 L Blood Type Antibody Screen Impressions: Abdomen/Pelvis CT 09/25/19 16:27 IMPRESSION: 1. Atrophic left kidney. No renal or ureteral calculi. No hydronephrosis. 2. Colonic diverticulosis without evidence of diverticulitis. No evidence of bowel obstruction or mass. KUB X-Ray 09/26/19 00:00 IMPRESSION: Tip of the enteric tube likely in the stomach copyright 2011 [employer]- All Rights Reserved Soft Tissue Neck CT 09/26/19 00:00 IMPRESSION: Limited noncontrast CT evaluation the neck without appreciable acute findings. Endotracheal tube terminating with the upper trachea. Partially visualized nasogastric tube. See dedicated CT of the chest. Chest CT 09/26/19 08:00 IMPRESSION: Bibasilar patchy airspace opacities and consolidation, new from CT abdomen performed 1 day prior. Differential considerations include aspiration/pneumonia, atelectasis, and pulmonary edema/ hemorrhage. Linear right apical airspace opacities and ground-glass opacification with mild traction bronchiectasis suggestive of scarring, although an acute infectious process cannot be excluded. Appropriately positioned endotracheal and enteric tubes. Head CT 09/26/19 08:00 IMPRESSION: No acute intracranial hemorrhage, midline shift or mass effect. Chronic he was age related involutional chronic small vessel ischemic changes. Partially visualized endotracheal and nasogastric tubes. Layering secretions within the nasopharynx likely related to tube placement. Additional bubbly opacities within the sphenoid sinuses, which again may be related to recent tube placement, although acute sinusitis cannot be excluded. EVIDENCE OF ACUTE STROKE: NO. All labs, radiographs, diagnostic studies and EKGs were personally reviewed: Yes In addition, reports of radiographic and diagnostic studies were read: Yes Assessment and Plan - Diagnosis (2) Lower GI bleed requiring more than 4 units of blood in 24 hours, ICU, or surgery Is this a current diagnosis for this admission?: Yes (3) Acute on chronic blood loss anemia Is this a current diagnosis for this admission?: Yes (4) Airway compromise Is this a current diagnosis for this admission?: Yes (5) Airway obstruction, anatomic Is this a current diagnosis for this admission?: Yes (6) Delirium due to medical condition with behavioral disturbance Is this a current diagnosis for this admission?: Yes (7) Acute metabolic encephalopathy Is this a current diagnosis for this admission?: Yes (8) AA (alcohol abuse) Is this a current diagnosis for this admission?: Yes Plan Summary: 09.27.2019: Respiratory: Patient has respiratory failure related to the need for excessive sedation given his delirium and acute metabolic encephalopathy. In addition he has significant secretions and has evidence to support an aspiration event and is currently on antibiotics. Ventilator pressures were evaluated and they are not excessive. Chest x-ray shows an evolving right middle lobe infiltrate he has been started on antibiotics. We will continue to monitor for suitability for liberation from mechanical ventilation however there appears to be a masslike structure on the tongue and we will try to evaluate that today during the EGD. Continue supportive care with evaluation of peak and plateau pressures given his emphysematous appearance of lungs. Infectious: Follow-up on cultures from respiratory. Continue antibiotics until appropriate to de-escalate Cardiac: Initial minimal decrease in blood pressure did not meet critical value. Overall improved with transfusion. Continue to monitor his hemodynamic status. Hematologic: Patient's hemoglobin hematocrit have drifted down slightly. We will continue to monitor for need for transfusion. He will undergo EGD and colonoscopy to look for source. He has acute blood loss anemia on chronic blood loss anemia given his presentation. Endocrine: No active issues. Evaluation for cortisol deficiency would be un dertaken if hypotension or other metabolic aspects ensue Renal: Patient has acute renal failure presumably from volume reduction. It has improved with transfusion. There may be an underlying degree of CKD however this would not be able to be evaluated at this time. Continue gentle IV hydration. Metabolic: Continue to monitor for metabolic instability. Thiamine and folate have been added as well as supplementary vitamins and minerals. Patient has a metabolic encephalopathy presumably related to alcohol withdrawal and and potentially unmeasured medication. Alimentary: N.p.o. for now until EGD and colonoscopy are done. This appears to be a lower GI source but will determine this after testing is complete Neurologic: Significant delirium with encephalopathy causing need for increased sedation leading to the need for protection of his airway. Will need to reduce sedation to evaluate his neurological function and status. Continued vigilance for alcohol withdrawal pathophysiology will need to be maintained Sedation: Propofol and fentanyl drip Versed has been discontinued Lines/Tubes: Peripheral IVs, endotracheal tube and orogastric tube as well as bowel maintenance tube Other: For EGD and colonoscopy today. Type and screen completed Critical Time Critical Time (minutes): 50 Level of Care: ICU -: 1. The care of a critical patient is a dynamic process. This note is a sales representative malt [employer] synopsis but static in nature. The timeframe for treatments given in order is not necessarily the actual time these treatments may have been done. 2. This patient requires critical care secondary to ongoing requirements for therapy not offered or safe outside the critical care environment. Transfer to a lower level of care will result in altered life or limb morbidity and mortality. 3. Multidisciplinary rounds completed. 4. ABCDE bundle addressed.
[2019-09-27] MEDS ORDERED: FLUMAZENIL INJ 0.5 MG/5 ML VIAL ONE (10:28)
[2019-09-27] MEDS ORDERED: NALOXONE HCL INJ/PF 0.4 MG/1 ML SDV ONE (10:28)
[2019-09-27] MEDS ORDERED: EPINEPHRINE INJ 1 MG/10 ML DISP.SYRIN ONE (10:28)
[2019-09-27] MEDS ORDERED: DIPHENHYDRAMINE HCL 50 MG/ML VIAL ONE (10:28)
[2019-09-27] MEDS ORDERED: ONDANSETRON HCL INJ/PF 4 MG/2 ML SDV ONE (10:28)
[2019-09-27] MEDS ORDERED: GLUCAGON,HUMAN RECOMB 1 MG INJ ONE (10:29)
[2019-09-27] MEDS: FOLIC ACID 1 MG TABLET PO SCH (10:34)
[2019-09-27] MEDS: PANTOPRAZOLE SODIUM 40 MG VIAL IV SCH ×2 (10:37→21:26)
[2019-09-27] MEDS: PIPERACILLIN SODIUM/TAZOBACTAM 4.5 GM in NORMAL SALINE 100 ML IV SCH ×2 (10:37→17:56)
--- NOTE | 2019-09-27 15:10 | Progress Note ---
Provider Note Provider Note: I personally helped to manage ET tube and airway during EGD and colonoscopy. We are grateful to the surgical staff for their assistance in the care of this patient. On EGD there was a large ulceration in the prepyloric region which may have had a perforation at some point. Biopsies were taken. There was no active bleeding noted at that time but the size of the ulcer was impressive. No vessels were seen. Colonoscopy was then done to assure that there was no bleeding in the proximal colon. Visualization down to the ileocecal valve including the appendix region was done by the surgeon. There were no large masses and certainly no bleeding. There was dark clotted mixed stool blood which appears to be from entrainment from more proximal upper GI source. Our assumption is that this patient has had a chronic bleed from this ulcer however a small bowel vessel would still need to be considered especially if bleeding continues. I also evaluated his airway. On the initial intubation there appeared to be difficulty with placing ET tube. Using a glide scope I was able to evaluate that there is redundant tissue around the tongue with possible lymphoid tissue as well. The arytenoids could only be partially evaluated because of the ET tube. We will have ENT evaluate before extubation. He has a #6.5 ET tube in and there did not appear to be any swelling around it. Will not use steroids given the large ulceration. We will continue to follow biopsy that were done today to rule out any malignancy and or H. pylori. Total critical care time in the involvement of above 30 minutes
[2019-09-27] MEDS ORDERED: ACETAMINOPHEN SOLN 325 MG/10.15 ML UDCUP ONE (17:40)
[2019-09-27 18:12] LABS: HEMATOCRIT 26.5 % (37.9-51.0); HEMOGLOBIN 8.9 g/dL (13.5-17.0); MEAN CORPUSCULAR HGB CONC 33.6 g/dL (32.0-36.0); MEAN CORPUSCULAR VOLUME 89 fl (80-97); PLATELET COUNT 187 10^3/uL (150-450); RED BLOOD COUNT 2.96 10^6/uL (4.35-5.55); RED CELL DISTRIBUTION WIDTH 18.7 % (11.5-14.0); WHITE BLOOD COUNT 14.5 10^3/uL (4.0-10.5)
[2019-09-28] MEDS: FENTANYL CITRATE/PF 600 MCG/60 ML BAG IV PRN ×2 (01:16→13:14)
[2019-09-28] MEDS: PIPERACILLIN SODIUM/TAZOBACTAM 4.5 GM in NORMAL SALINE 100 ML IV SCH ×3 (01:17→17:20)
[2019-09-28] MEDS: PROPOFOL 1,000 MG/100 ML INFUS..BTL IV PRN ×2 (02:54→10:31)
[2019-09-28 04:06] LABS: ARTERIAL BLOOD BASE EXCESS -8.2 mmol/L; ARTERIAL BLOOD H2CO3 1.11 mmol/L (1.05-1.35); ARTERIAL BLOOD HCO3 17.6 mmol/L (20-24); ARTERIAL BLOOD O2 SATURATION 95.9 % (94-98); ARTERIAL BLOOD PCO2 36.9 mmHg (35-45); ARTERIAL BLOOD PO2 88.5 mmHg (80-100); ARTERIAL BLOOD TOTAL CO2 18.7 mmol/L (23-27)
[2019-09-28 04:09] LABS: ARTERIAL BLOOD FIO2 30%
--- NOTE | 2019-09-28 04:37 | PDOC PROGRESS REPORT ---
Subjective Progress Note for:: 09/27/19 Subjective:: 54-year-old male with a history of anemia and peptic ulcer disease. He was intubated last night for combativeness. There is a question of possible alcohol withdrawals versus other causes of delirium. He is currently intubated and sedated. No review of systems can be obtained secondary to his current mental status. Reason For Visit: GI BLEED Physical Exam Vital Signs: Temp Pulse Resp BP Pulse Ox 99.0 F 77 19 124/51 L 100 09/27/19 12:00 09/27/19 15:30 09/27/19 15:30 09/27/19 15:15 09/27/19 15:57 Intake & Output 09/26/19 09/27/19 09/28/19 06:59 06:59 06:59 Intake Total 1451 2852 805 Output Total 350 3820 635 Balance 1101 -968 170 Weight 65.7 kg 68.5 kg General appearance: PRESENT: no acute distress. ABSENT: cooperative Head exam: PRESENT: atraumatic, normocephalic Eye exam: ABSENT: scleral icterus Mouth exam: PRESENT: moist, neck supple Neck exam: ABSENT: tracheal deviation, tracheostomy Respiratory exam: PRESENT: unlabored, other - Intubated. ABSENT: tachypnea Cardiovascular exam: ABSENT: tachycardia GI/Abdominal exam: PRESENT: soft. ABSENT: distended, firm, guarding, rigid, tenderness Rectal exam: PRESENT: deferred Extremities exam: ABSENT: clubbing Musculoskeletal exam: ABSENT: deformity Neurological exam: ABSENT: alert, awake, oriented to person Psychiatric exam: PRESENT: other - Intubated and sedated. ABSENT: agitated, anxious, depressed Focused psych exam: PRESENT: other - Intubated and sedated Skin exam: ABSENT: cyanosis, erythema, jaundice Results Laboratory Results: 09/27/19 03:22 09/27/19 03:22 09/25/19 09/26/19 09/27/19 15:28 18:00 03:22 WBC 11.8 H 13.0 H RBC 2.98 L 2.61 L Hgb 8.5 L 7.6 L Hct 26.1 L 22.6 L MCV 88 87 MCH 28.7 29.0 MCHC 32.7 33.5 RDW 17.8 H 17.2 H Plt Count 159 178 Seg Neutrophils % 80.5 H Carbonic Acid HCO3/H2CO3 Ratio ABG pH ABG pCO2 ABG pO2 ABG HCO3 ABG O2 Saturation ABG Base Excess FiO2 Sodium Potassium Chloride Carbon Dioxide Anion Gap BUN Creatinine Est GFR ( Amer) Glucose Calcium Phosphorus Magnesium Total Bilirubin AST Alkaline Phosphatase Ammonia Total Protein Albumin Blood Type O POSITIVE Antibody Screen NEGATIVE 09/27/19 09/27/19 09/27/19 03:22 03:22 04:59 WBC RBC Hgb Hct MCV MCH MCHC RDW Plt Count Seg Neutrophils % Carbonic Acid 0.97 L HCO3/H2CO3 Ratio 17:1 ABG pH 7.33 L ABG pCO2 32.1 L ABG pO2 76.2 L ABG HCO3 16.5 L ABG O2 Saturation 94.6 ABG Base Excess -8.6 FiO2 30% Sodium 137.6 Potassium 3.7 Chloride 112 H Carbon Dioxide 17 L Anion Gap 9 BUN 32 H Creatinine 1.61 H Est GFR ( Amer) 54 L Glucose 88 Calcium 7.6 L Phosphorus 3.9 Magnesium 1.6 Total Bilirubin 0.4 AST 35 Alkaline Phosphatase 51 Ammonia < 8.7 L Total Protein 5.0 L Albumin 2.7 L Blood Type Antibody Screen Impressions: Abdomen/Pelvis CT 09/25/19 16:27 IMPRESSION: 1. Atrophic left kidney. No renal or ureteral calculi. No hydronephrosis. 2. Colonic diverticulosis without evidence of diverticulitis. No evidence of bowel obstruction or mass. KUB X-Ray 09/26/19 00:00 IMPRESSION: Tip of the enteric tube likely in the stomach copyright 2011 [employer]- All Rights Reserved Soft Tissue Neck CT 09/26/19 00:00 IMPRESSION: Limited noncontrast CT evaluation the neck without appreciable acute findings. Endotracheal tube terminating with the upper trachea. Partially visualized nasogastric tube. See dedicated CT of the chest. Chest CT 09/26/19 08:00 IMPRESSION: Bibasilar patchy airspace opacities and consolidation, new from CT abdomen performed 1 day prior. Differential considerations include aspiration/pneumonia, atelectasis, and pulmonary edema/ hemorrhage. Linear right apical airspace opacities and ground-glass opacification with mild traction bronchiectasis suggestive of scarring, although an acute infectious process cannot be excluded. Appropriately positioned endotracheal and enteric tubes. Head CT 09/26/19 08:00 IMPRESSION: No acute intracranial hemorrhage, midline shift or mass effect. Chronic he was age related involutional chronic small vessel ischemic changes. Partially visualized endotracheal and nasogastric tubes. Layering secretions within the nasopharynx likely related to tube placement. Additional bubbly opacities within the sphenoid sinuses, which again may be related to recent tube placement, although acute sinusitis cannot be excluded. EVIDENCE OF ACUTE STROKE: NO. Assessment & Plan - Diagnosis (1) Anemia Qualifiers: Anemia type: unspecified type Qualified Code(s): D64.9 - Anemia, unspec ified Is this a current diagnosis for this admission?: Yes - Plan Summary Plan Summary: 54-year-old male with a history of peptic ulcer disease, presented with a hemoglobin of 4. Patient underwent bowel prep yesterday. Plan for EGD and colonoscopy today to evaluate for current bleeding. Consent was given by family members, as the patient is currently intubated.
--- NOTE | 2019-09-28 04:43 | Operative Report ---
Nonrecallable Operative Report DATE OF SURGERY: 09/27/19 PREOPERATIVE DIAGNOSIS: Anemia with a history of peptic ulcer disease POSTOPERATIVE DIAGNOSIS: 1. Same as above. 2. Large prepyloric gastric ulcer, without active bleeding. 3. Melanotic stool within the colon, however no signs of active bleeding in the colon. OPERATION: 1. EGD with biopsy. 2. Colonoscopy to the cecum. SURGEON: SILKE POSADAS ANESTHESIA: GA TISSUE REMOVED OR ALTERED: 1. Biopsy at margin of ulcer. 2. Biopsy within the base of the ulcer. COMPLICATIONS: None apparent ESTIMATED BLOOD LOSS: Minimal PROCEDURE: Procedure in detail: After informed consent was obtained from the patient's family, he was laid in the supine position in the intensive care unit. The flexible gastroscope was inserted into the oropharynx, down the esophagus, and into the stomach. Please note there were no obvious masses or lesions in the posterior oropharynx or esophagus. The scope was advanced into the gastric body and antrum. The stomach was insufflated with air. There was immediately noted to be a large prepyloric gastric ulcer. There was no active bleeding. There is no old blood present in the stomach. The scope was advanced through the pylorus into the first and second portions of the duodenum. These were normal. The scope was withdrawn back into the antrum, where a biopsy was performed at the margin of the ulcer, as well as in the base of the ulcer. Next, the scope was retroflexed in the gastric body. No large hiatal hernias or gastric varices could be identified. The scope was withdrawn into the distal esophagus where no esophageal varices were appreciated. The scope was then withdrawn up the remainder of the esophagus, and out the oropharynx. Next the colonoscope was inserted into the rectum. It was passed up the rectum, sigmoid colon, descending colon, across the transverse colon, down the ascending colon, and into the cecum. The ileocecal valve and appendiceal orifice were identified. The scope was then withdrawn, circumferentially noting the mucosa. The prep was poor. There was melanotic stool throughout the descending and sigmoid colon. Multiple washings were performed in order to clear the stool. This was moderately successful. This study should not serve as a screening colonoscopy. Its purpose was merely to ensure there was no active bleeding in the colon, and rule out large masses (which it has done). The scope was withdrawn past the ascending colon, transverse colon, down the descending colon, sigmoid colon, and the rectum. Again, no active bleeding was identified throughout the colon. There was melanotic stool throughout the colon, the largest concentration in the descending and sigmoid colon. Once the rectum was reached, the scope was removed, and the procedure was concluded. All sponge, instrument, and needle counts were correct x2. Condition: Fair.
--- NOTE | 2019-09-28 04:45 | Progress Note ---
Provider Note Provider Note: Hemoglobin appears stable. No evidence of active bleeding. Continue with PPI and Carafate. Surgery will sign off at this time. Please renotify with any questions or concerns.
[2019-09-28 05:17] LABS: ABSOLUTE BASOPHILS # (AUTO) 0.1 10^3/uL (0.0-0.2); ABSOLUTE EOSINOPHILS # (AUTO) 0.2 10^3/uL (0.0-0.6); ABSOLUTE LYMPHOCYTES (AUTO) 1.2 10^3/uL (0.5-4.7); ABSOLUTE MONOCYTES (AUTO) 1.1 10^3/uL (0.1-1.4); ABSOLUTE NEUT (AUTO) 11.8 10^3/uL (1.7-8.2); BASOPHILS % (AUTO) 0.6 % (0-2); EOSINOPHILS % (AUTO) 1.6 % (0-6); HEMATOCRIT 26.2 % (37.9-51.0); HEMOGLOBIN 8.8 g/dL (13.5-17.0); LYMPHOCYTES % (AUTO) 8.2 % (13-45); MEAN CORPUSCULAR HEMOGLOBIN 30.2 pg (27.0-33.4); MEAN CORPUSCULAR HGB CONC 33.6 g/dL (32.0-36.0); MEAN CORPUSCULAR VOLUME 90 fl (80-97); MONOCYTES % (AUTO) 7.8 % (3-13); PLATELET COUNT 208 10^3/uL (150-450); RED BLOOD COUNT 2.92 10^6/uL (4.35-5.55); RED CELL DISTRIBUTION WIDTH 18.9 % (11.5-14.0); SEGMENTED NEUTROPHILS % (AUTO) 81.8 % (42-78); TOTAL CELLS COUNTED % (AUTO) 100 %; WHITE BLOOD COUNT 14.4 10^3/uL (4.0-10.5)
[2019-09-28] MEDS: THIAMINE HCL 500 MG in NORMAL SALINE 250 ML IV SCH (05:24)
[2019-09-28 05:32] LABS: INTERNATIONAL RATION (INR) 1.09; PROTHROMBIN TIME 14.1 SEC (11.4-15.4)
[2019-09-28 05:33] LABS: PARTIAL THROMBOPLASTIN TIME 35.4 SEC (23.5-35.8)
[2019-09-28 05:36] LABS: ALBUMIN 2.6 g/dL (3.5-5.0); ALKALINE PHOSPHATASE 61 U/L (38-126); ANION GAP 10 (5-19); ASPARTATE AMINO TRANSFERASE 43 U/L (17-59); BILIRUBIN,TOTAL 0.5 mg/dL (0.2-1.3); BLOOD UREA NITROGEN 20 mg/dL (7-20); CARBON DIOXIDE 17 mmol/L (22-30); CHLORIDE 114 mmol/L (98-107); GLUCOSE 77 mg/dL (75-110); PHOSPHORUS 3.3 mg/dL (2.5-4.5); POTASSIUM 3.6 mmol/L (3.6-5.0); TOTAL PROTEIN 5.1 g/dL (6.3-8.2)
[2019-09-28] MEDS: RINGERS SOLUTION,LACTATED 1,000 ML IV PRN (07:38)
--- NOTE | 2019-09-28 07:41 | RADIOLOGY REPORT (SQ) ---
EXAM DESCRIPTION: CHEST SINGLE VIEW IMAGES COMPLETED DATE/TIME: 09/28/2019 6:24 am REASON FOR STUDY: Aspiration pneumonia COMPARISON: Chest films 09/27/2019, 09/26/2027, 08/10/2014 CT chest 09/26/2019 EXAM PARAMETERS: NUMBER OF VIEWS: One view. TECHNIQUE: Single frontal radiographic view of the chest acquired. RADIATION DOSE: NA LIMITATIONS: None. FINDINGS: LUNGS AND PLEURA: Dense consolidation present in the medial aspect of the right and left l ower lobes, worrisome for aspiration pneumonia. This is similar compared to 09/27/[address] No gross pleural effusion. No pneumothorax. MEDIASTINUM AND HILAR STRUCTURES: No masses. Contour normal. HEART AND VASCULAR STRUCTURES: Heart normal in size. Normal vasculature. BONES: No acute findings. HARDWARE: Endotracheal tube tip 5 cm above the anya. Nasogastric tip and side port in the stomach. OTHER: No other significant finding. IMPRESSION: Persistent right and left lower lobe pneumonia TECHNICAL DOCUMENTATION: JOB ID: [id number] 2010 [employer]- All Rights Reserved Reading location - IP/workstation name: [email or web address]
[2019-09-28] MEDS ORDERED: SUCRALFATE 1 GM TABLET PO SCH (08:00)
[2019-09-28] MEDS: PANTOPRAZOLE SODIUM 40 MG VIAL IV SCH ×2 (09:04→21:14)
[2019-09-28] MEDS: FOLIC ACID 1 MG TABLET NG SCH (09:06)
[2019-09-28 09:32] LABS: PATH REVIEW PATHOLOGIST REVIEWED
[2019-09-28] MEDS: SUCRALFATE 1 GM TABLET NG SCH ×3 (10:35→21:14)
--- NOTE | 2019-09-28 13:50 | PDOC CRITICAL CARE PROG REPORT ---
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 Previous notes there was a large prepyloric ulcer which was not actively bleeding but showed evidence of prior bleeding. Again no vessel seen. He has had no further bleeding events and there is not been any significant melena and certainly no blood per NG tube. His sedation has been appropriate and he is had no delirium or agitation except when being moved or clean. 09.27.2019: Patient sedation requirements have improved and he is now being maintained on propofol and fentanyl only. Versed has been discontinued. On examination he appears heavily sedated and we are cautious in the assumption that it is related to the amount of Versed needed during his delirium state. He has remained hemodynamically stable however his hemoglobin hematocrit have slowly drifted down. He has not had hypotension associated with this. Nursing has noted increase in secretions and his chest x-ray shows an evolving right mi ddle lobe infiltrate that may be consistent with an aspiration event. He has been started on antibiotics and cultures and Gram stain have been ordered. Review of systems relevant to events:: 09.28.2019: Patient's hemoglobin hematocrit are acceptable today. Chest x-ray shows continued improvement. Core temperatures remain at 99 without any excessive elevation 09.27.2019: Patient is n.p.o. in anticipation for upper and lower endoscopy. He received a bowel prep in preparation for colonoscopy. We are concerned that his bleeding is coming from a lower but proximal GI source given the absence of blood in NG tube findings. Notably, during airway examination during intubation there appeared to be obstruction from a tongue mass. Reason for ICU Addmission:: GI Bleed - Medications: Vasopressors:: None Sedation:: Propofol and fentanyl. Propofol at 10 mics RASS -1 Physical Exam Vital Signs: Temp Pulse Resp BP Pulse Ox 100.0 F 78 12 152/64 H 99 09/28/19 05:24 09/28/19 11:00 09/28/19 12:16 09/28/19 12:16 09/28/19 12:30 Intake & Output 09/27/19 09/28/19 09/29/19 06:59 06:59 06:59 Intake Total 2852 2260 535 Output Total 3820 1735 625 Balance -968 525 -90 Weight 68.5 kg 70.6 kg Weight/Height Weight 70.6 kg Height 5 ft 11 in General appearance: PRESENT: no acute distress, thin Exam: Intubated older appearing chronically ill 54-year-old male distress. He is somewhat disheveled in appearance Head exam: PRESENT: atraumatic, normocephalic Eye exam: PRESENT: conjunctiva pink, PERRLA. ABSENT: conjunctival injection, ny stagmus, scleral icterus Mouth exam: PRESENT: tongue midline Teeth exam: PRESENT: edentulous Neck exam: ABSENT: carotid bruit, JVD, lymphadenopathy, thyromegaly, tracheal deviation Respiratory exam: PRESENT: clear to auscultation baljinder, unlabored. ABSENT: accessory muscle use, rales, rhonchi, tachypnea, wheezes Cardiovascular exam: PRESENT: RRR, +S1, +S2 Pulses: PRESENT: normal dorsalis pedis pul, +1 pedal pulses bilateral GI/Abdominal exam: PRESENT: normal bowel sounds, soft. ABSENT: ascites, distended, guarding, mass, organolmegaly, rebound, tenderness Rectal exam: PRESENT: deferred Gentrourinary exam: PRESENT: indwelling catheter. ABSENT: ecchymosis, erythema, lesions, scrotal swelling Extremities exam: ABSENT: clubbing, pedal edema Musculoskeletal exam: PRESENT: normal inspection. ABSENT: deformity, dislocat ion Neurological exam: PRESENT: altered, other - Patient is appropriately sedated. He is moving all extremities follows commands and lifts head to commands.. ABSENT: motor sensory deficit Psychiatric exam: PRESENT: agitated - He is agitated when stimulated. Focused psych exam: PRESENT: restlessness Skin exam: PRESENT: dry, intact, warm. ABSENT: cyanosis, pallor, rash Tubes/Lines: PRESENT: Endotracheal Tube, Nasogastic Tube - Chua type urinary catheter Laboratory/Radiographs Laboratory Results: 09/28/19 05:00 09/28/19 05:00 09/25/19 09/27/19 09/28/19 15:28 18:00 03:48 WBC 14.5 H RBC 2.96 L Hgb 8.9 L Hct 26.5 L MCV 89 MCH 30.0 MCHC 33.6 RDW 18.7 H Plt Count 187 Seg Neutrophils % Carbonic Acid 1.11 HCO3/H2CO3 Ratio 15:1 ABG pH 7.30 L ABG pCO2 36.9 ABG pO2 88.5 ABG HCO3 17.6 L ABG O2 Saturation 95.9 ABG Base Excess -8.2 FiO2 30% Sodium Potassium Chloride Carbon Dioxide Anion Gap BUN Creatinine Est GFR ( Amer) Glucose Calcium Phosphorus Magnesium Total Bilirubin AST Alkaline Phosphatase Total Protein Albumin Blood Type O POSITIVE Antibody Screen NEGATIVE 09/28/19 09/28/19 05:00 05:00 WBC 14.4 H RBC 2.92 L Hgb 8.8 L Hct 26.2 L MCV 90 MCH 30.2 MCHC 33.6 RDW 18.9 H Plt Count 208 Seg Neutrophils % 81.8 H Carbonic Acid HCO3/H2CO3 Ratio ABG pH ABG pCO2 ABG pO2 ABG HCO3 ABG O2 Saturation ABG Base Excess FiO2 Sodium 140.7 Potassium 3.6 Chloride 114 H Carbon Dioxide 17 L Anion Gap 10 BUN 20 Creatinine 1.56 H Est GFR ( Amer) 56 L Glucose 77 Calcium 8.0 L Phosphorus 3.3 Magnesium 1.8 Total Bilirubin 0.5 AST 43 Alkaline Phosphatase 61 Total Protein 5.1 L Albumin 2.6 L Blood Type Antibody Screen Impressions: Abdomen/Pelvis CT 09/25/19 16:27 IMPRESSION: 1. Atrophic left kidney. No renal or ureteral calculi. No hydronephrosis. 2. Colonic diverticulosis without evidence of diverticulitis. No evidence of bowel obstruction or mass. KUB X-Ray 09/26/19 00:00 IMPRESSION: Tip of the enteric tube likely in the stomach copyright 2011 [employer]- All Rights Reserved Soft Tissue Neck CT 09/26/19 00:00 IMPRESSION: Limited noncontrast CT evaluation the neck without appreciable acute findings. Endotracheal tube terminating with the upper trachea. Partially visualized nasogastric tube. See dedicated CT of the chest. Chest CT 09/26/19 08:00 IMPRESSION: Bibasilar patchy airspace opacities and consolidation, new from CT abdomen performed 1 day prior. Differential considerations include aspiration/pneumonia, atelectasis, and pulmonary edema/ hemorrhage. Linear right apical airspace opacities and ground-glass opacification with mild traction bronchiectasis suggestive of scarring, although an acute infectious process cannot be excluded. Appropriately positioned endotracheal and enteric tubes. Head CT 09/26/19 08:00 IMPRESSION: No acute intracranial hemorrhage, midline shift or mass effect. Chronic he was age related involutional chronic small vessel ischemic changes. Partially visualized endotracheal and nasogastric tubes. Layering secretions within the nasopharynx likely related to tube placement. Additional bubbly opacities within the sphenoid sinuses, which again may be related to recent tube placement, although acute sinusitis cannot be excluded. EVIDENCE OF ACUTE STROKE: NO. Chest X-Ray 09/28/19 06:00 IMPRESSION: Persistent right and left lower lobe pneumonia All labs, radiographs, diagnostic studies and EKGs were personally reviewed: Yes In addition, reports of radiographic and diagnostic studies were read: Yes Assessment and Plan - Diagnosis (2) Lower GI bleed requiring more than 4 units of blood in 24 hours, ICU, or surgery Is this a current diagnosis for this admission?: Yes (3) Acute on chronic blood loss anemia Is this a current diagnosis for this admission?: Yes (4) Airway compromise Is this a current diagnosis for this admission?: Yes (5) Airway obstruction, anatomic Is this a current diagnosis for this admission?: Yes (6) Delirium due to medical condition with behavioral disturbance Is this a current diagnosis for this admission?: Yes (7) Acute metabolic encephalopathy Is this a current diagnosis for this admission?: Yes (8) AA (alcohol abuse) Is this a current diagnosis for this admission?: Yes Plan Summary: 2020: Respiratory: Patient's respiratory status has improved as well as his chest x- ray. He does show gram-positive growing in his sputum he was very appropriately started on antibiotics in a timely fashion. To that end I am impressed with the improvement in his chest x-ray and the ability for the patient to be on a vent weaning challenge this morning. Plans will be to continue SBT in anticipation for liberation from the ventilator. Of note, the intubation appear to be somewhat difficult with a possible redundant tissue occluding the airway. We will check for cuff leak to determine suitability for liberation. Patient has a small ET tube and fortunately. I have talked to ENT who will evaluate the patient post extubation to determine whether there is need for biopsy or evaluation of excess the tissue that was seen the patient. On my evaluation via glide scope we were able to evaluate what appears to be lymphoid tissue tongue recess however nothing was obstructing the airway and is much as could be evaluated with the presence of an ET tube. Infectious: Patient has aspiration pneumonia and is on appropriate antibiotics. Chest x-ray is improving. Continue to monitor and de-escalate as dictated. Cardiac: No active cardiac issues. No hypotension continue to monitor supportively Hematologic: Hemoglobin hematocrit have improved. We consider iron therapy will wait until infection clears. Continue to monitor hemoglobin hematocrit Endocrine: No active issues continue to monitor Renal: Issues continue to monitor Metabolic: Patient appears to have some degree of weight loss with protein calorie malnutrition as evidenced by bitemporal muscle wasting. NG tube in when he is extubated in order to facilitate tube feeding. Alimentary: We will begin tube feeding in 24 hours. Given the fact the patient has protein calorie malnutrition of moderate extent of paramount that he obtain nutrition as quickly as possible Neurologic: Patient appears to have a significant alcohol use disorder but will confirm this when he is extubated. He may need Precedex for liberation from ventilation given his delirium and metabolic encephalopathy Sedation: Weaning propofol and IV fentanyl Lines/Tubes: Peripheral IVs and Chua as well as NG tube Other: Plans for today are to continue SBT with hopes for liberation from ventil ator. Check for cuff leak prior to extubation, start tube feeding follow-up on biopsy of ulcer. Continue Protonix and soak her feet therapy. ENT follow-up after extubation. No recent steroids given the size and extent of ulcer. 09.27.2019: Respiratory: Patient has respiratory failure related to the need for excessive sedation given his delirium and acute metabolic encephalopathy. In addition he has significant secretions and has evidence to support an aspiration event and is currently on antibiotics. Ventilator pressures were evaluated and they are not excessive. Chest x-ray shows an evolving right middle lobe infiltrate he has been started on antibiotics. We will continue to monitor for suitability for liberation from mechanical ventilation however there appears to be a masslike structure on the tongue and we will try to evaluate that today during the EGD. Continue supportive care with evaluation of peak and plateau pressures given his emphysematous appearance of lungs. Infectious: Follow-up on cultures from respiratory. Continue antibiotics until appropriate to de-escalate Cardiac: Initial minimal decrease in blood pressure did not meet critical value. Overall improved with transfusion. Continue to monitor his hemodynamic status. Hematologic: Patient's hemoglobin hematocrit have drifted down slightly. We will continue to monitor for need for transfusion. He will undergo EGD and colonoscopy to look for source. He has acute blood loss anemia on chronic blood loss anemia given his presentation. Endocrine: No active issues. Evaluation for cortisol deficiency would be undertaken if hypotension or other metabolic aspects ensue Renal: Patient has acute renal failure presumably from volume reduction. It has improved with transfusion. There may be an underlying degree of CKD however this would not be able to be evaluated at this time. Continue gentle IV hydration. Metabolic: Continue to monitor for metabolic instability. Thiamine and folate have been added as well as supplementary vitamins and minerals. Patient has a metabolic encephalopathy presumably related to alcohol withdrawal and and potentially unmeasured medication. Alimentary: N.p.o. for now until EGD and colonoscopy are done. This appears to be a lower GI source but will determine this after testing is complete Neurologic: Significant delirium with encephalopathy causing need for increased sedation leading to the need for protection of his airway. Will need to reduce sedation to evaluate his neurological function and status. Continued vigilance for alcohol withdrawal pathophysiology will need to be maintained Sedation: Propofol and fentanyl drip Versed has been discontinued Lines/Tubes: Peripheral IVs, endotracheal tube and orogastric tube as well as bowel maintenance tube Other: For EGD and colonoscopy today. Type and screen completed 09.26.2019: I personally saw and evaluated the patient after his admission by MARLON Sapp. There was significant issues with control of agitation and he had an acute encephalopathy. This progressed to the point that there was need for deeper sedation and concern for airway protection he was intubated. In discussion with the nurse practitioner who intubated him it appears that there was significant soft tissue changes and a very narrow tracheal orifice. CT scan obtained after intubation does not show any significant masses however it is possible given his extensive smoking and alcohol history that there is a tracheal mass. This will need to be evaluated when patient is suitable for liberation from mechanical ventilation. I reviewed his CT scan of his chest and his abdomen and pelvis. He does have significant emphysema but no masses are identifiable. His CT scan of chest today in comparison to yesterday does show evidence of what appears to be aspiration phenomenon. Will need to be vigilant to watch for active pneumonitis and or infection. Patient has anemia which was not hemodynamically significant. A hemoglobin of 4 without acute hemodynamic changes is indicative of a chronic longstanding bleeding issue. In that the NG tube did not show any blood I am concerned that this is of colonic origin and may represent a mass. The plan for this gentleman will be to perform an EGD while we have a appropriately sedated patient who would not be agitated and then progress to colonoscopy. We will begin preparation of lower GI tract as well. His hemoglobin has responded appropriately and he does not appear to be having an active extravasating type bleed. We will continue to monitor his hemoglobin and hematocrit appropriately. His acute encephalopathy and agitation appears to be related to alcohol withdrawal. There is some suggestion that this is been an ongoing issue. His toxicology screen was negative for any recreational ingestants. Given his negative alcohol level his presentation is indicative of a possible delirium related to acute alcohol withdrawal related encephalopathy. He has required significant amount of sedation in the form of propofol and Versed and I have made adjustments to this to try to reduce the amount of Versed he is receiving. We will continue supportive care in the ICU, continue on mechanical ventilation and follow-up on his EGD and colonoscopy studies. Given concern for alcohol use I have placed him on high-dose thiamine therapy as well as folate and zinc. We will also transition him to twice daily Protonix. Critical Time Critical Time (minutes): 45 Level of Care: ICU Anticipated discharge: Acute Rehab Within: within 72 hours -: 1. The care of a critical patient is a dynamic process. This note is a underwriting sales representative synopsis but static in nature. The timeframe for treatments given in order is not necessarily the actual time these treatments may have been done. 2. This patient requires critical care secondary to ongoing requirements for therapy not offered or safe outside the critical care environment. Transfer to a lower level of care will result in altered life or limb morbidity and mortality. 3. Multidisciplinary rounds completed. 4. ABCDE bundle addressed.
[2019-09-28 14:27] LABS: ARTERIAL BLOOD H2CO3 0.98 mmol/L (1.05-1.35); ARTERIAL BLOOD HCO3 16.3 mmol/L (20-24); ARTERIAL BLOOD O2 SATURATION 96.8 % (94-98); ARTERIAL BLOOD PCO2 32.7 mmHg (35-45); ARTERIAL BLOOD PH 7.32 (7.35-7.45); ARTERIAL BLOOD PO2 95.8 mmHg (80-100); ARTERIAL BLOOD TOTAL CO2 17.3 mmol/L (23-27)
[2019-09-28 14:29] LABS: ARTERIAL BLOOD FIO2 30%
[2019-09-28] MEDS: FUROSEMIDE INJ/PF 20 MG/2 ML SDV IV SCH ×2 (15:33→21:15)
[2019-09-28 16:12] LABS: ACETAMINOPHEN < 10 ug/mL (10-30); SALICYLATE < 1.0 mg/dL (2.0-20.0)
[2019-09-28] MEDS: THIAMINE HCL 250 MG in NORMAL SALINE 100 ML IV SCH (21:14)
[2019-09-28] MEDS ORDERED: THIAMINE HCL 250 MG in NORMAL SALINE 100 ML IV SCH (22:00)
[2019-09-28] MEDS ORDERED: THIAMINE HCL 250 MG in NORMAL SALINE 50 ML IV SCH (22:00)
[2019-09-29] MEDS: PIPERACILLIN SODIUM/TAZOBACTAM 4.5 GM in NORMAL SALINE 100 ML IV SCH ×2 (02:04→09:51)
[2019-09-29 04:39] LABS: ABSOLUTE EOSINOPHILS # (AUTO) 0.2 10^3/uL (0.0-0.6); ABSOLUTE LYMPHOCYTES (AUTO) 0.8 10^3/uL (0.5-4.7); ABSOLUTE MONOCYTES (AUTO) 1.1 10^3/uL (0.1-1.4); ABSOLUTE NEUT (AUTO) 12.2 10^3/uL (1.7-8.2); BASOPHILS % (AUTO) 0.2 % (0-2); EOSINOPHILS % (AUTO) 1.3 % (0-6); HEMATOCRIT 28.6 % (37.9-51.0); HEMOGLOBIN 9.7 g/dL (13.5-17.0); LYMPHOCYTES % (AUTO) 5.6 % (13-45); MEAN CORPUSCULAR HEMOGLOBIN 29.9 pg (27.0-33.4); MEAN CORPUSCULAR VOLUME 88 fl (80-97); MONOCYTES % (AUTO) 7.4 % (3-13); PLATELET COUNT 266 10^3/uL (150-450); RED BLOOD COUNT 3.25 10^6/uL (4.35-5.55); RED CELL DISTRIBUTION WIDTH 17.6 % (11.5-14.0); SEGMENTED NEUTROPHILS % (AUTO) 85.5 % (42-78); TOTAL CELLS COUNTED % (AUTO) 100 %; WHITE BLOOD COUNT 14.3 10^3/uL (4.0-10.5)
[2019-09-29] MEDS ORDERED: HYDRALAZINE HCL INJ/PF 20 MG/1 ML SDV IV ONE (04:42)
[2019-09-29 04:53] LABS: ANION GAP 11 (5-19); BLOOD UREA NITROGEN 17 mg/dL (7-20); CALCIUM 8.6 mg/dL (8.4-10.2); CARBON DIOXIDE 22 mmol/L (22-30); CHLORIDE 108 mmol/L (98-107); GLUCOSE 87 mg/dL (75-110); PHOSPHORUS 2.5 mg/dL (2.5-4.5); POTASSIUM 3.2 mmol/L (3.6-5.0)
[2019-09-29] MEDS: SUCRALFATE 1 GM TABLET NG SCH ×4 (07:53→21:45)
--- NOTE | 2019-09-29 09:31 | RADIOLOGY REPORT (SQ) ---
EXAM DESCRIPTION: CHEST SINGLE VIEW IMAGES COMPLETED DATE/TIME: 09/29/2019 5:48 am REASON FOR STUDY: aspiration pneumonia COMPARISON: Chest films 09/26/2019, 09/27/2019, 09/29/2019 CT chest 09/26/2019 EXAM PARAMETERS: NUMBER OF VIEWS: One view. TECHNIQUE: Single frontal radiographic view of the chest acquired. RADIATION DOSE: NA LIMITATIONS: None. FINDINGS: LUNGS AND PLEURA: Minimal stable right retrocardiac and left basilar airspace disease. No fluffy perihilar infiltrates worrisome for pulmonary edema. No pleural effusion. No pneumothorax . MEDIASTINUM AND HILAR STRUCTURES: No masses. Contour normal. HEART AND VASCULAR STRUCTURES: Borderline cardiomegaly BONES: No acute findings. HARDWARE: Nasogastric tube tip and side port in the stomach. Endotracheal tube has been removed. OTHER: No other significant finding. IMPRESSION: Persistent bibasilar airspace disease. Nasogastric tube tip and side port in the stomach TECHNICAL DOCUMENTATION: JOB ID: [id number] 2010 [employer]- All Rights Reserved Reading location - IP/workstation name: [email or web address]
[2019-09-29] MEDS: FUROSEMIDE INJ/PF 20 MG/2 ML SDV IV SCH (09:50)
[2019-09-29] MEDS: PANTOPRAZOLE SODIUM 40 MG VIAL IV SCH ×2 (09:50→21:45)
[2019-09-29] MEDS: FOLIC ACID 1 MG TABLET NG SCH (09:50)
[2019-09-29] MEDS: THIAMINE HCL 250 MG in NORMAL SALINE 100 ML IV SCH ×2 (09:50→21:45)
--- NOTE | 2019-09-29 13:01 | PDOC CRITICAL CARE PROG REPORT ---
General Date:: 09/29/19 ICU Day:: 4 Hospital Day:: 4 Resuscitation Status: Full Code Medical Power of Vessel Ordinary Seaman: Events in the past 12 to 24 Hours:: 09.29.2019: Patient successfully extubated and liberated from mechanical ventilat ion. He has had no hemodynamic instability but has had a subtle rise in his blood pressure. There is been no further bleeding and NG tube is free of blood as well. He has no complaints today. 09.28.2019: Patient has eventful day yesterday with combined EGD and colonoscopy. Previous notes there was a large prepyloric ulcer which was not actively bleeding but showed evidence of prior bleeding. Again no vessel seen. He has had no further bleeding events and there is not been any significant melena and certainly no blood per NG tube. His sedation has been appropriate and he is had no delirium or agitation except when being moved or clean. 09.27.2019: Patient sedation requirements have improved and he is now being maintained on propofol and fentanyl only. Versed has been discontinued. On examination he appears heavily sedated and we are cautious in the assumption that it is related to the amount of Versed needed during his delirium state. He has remained hemodynamically stable however his hemoglobin hematocrit have sl owly drifted down. He has not had hypotension associated with this. Nursing has noted increase in secretions and his chest x-ray shows an evolving right middle lobe infiltrate that may be consistent with an aspiration event. He has been started on antibiotics and cultures and Gram stain have been ordered. Review of systems relevant to events:: 09.29.2019: Hemoglobin hematocrit are improved today. Discussion with the patient discloses that he does not drink alcohol and is fact not drank for approximately 30 years. He does take excessive amounts of NSAIDs because of chronic knee pain. He had been having abdominal discomfort as well. This has improved. He was placed on diuretic because of metabolic acidosis and this has improved. He had a substantial urine output with improvement in his creatinine. 09.28.2019: Patient's hemoglobin and hematocrit are acceptable today. Chest x- ray shows continued improvement. Core temperatures remain at 99 without any exc essive elevation 09.27.2019: Patient is n.p.o. in anticipation for upper and lower endoscopy. He received a bowel prep in preparation for colonoscopy. We are concerned that his bleeding is coming from a lower but proximal GI source given the absence of blood in NG tube findings. Notably, during airway examination during intubation there appeared to be obstruction from a tongue mass. Reason for ICU Addmission:: GI Bleed - Medications: Vasopressors:: None Sedation:: None Physical Exam Vital Signs: Temp Pulse Resp BP Pulse Ox 98.2 F 92 23 H 167/65 H 96 09/29/19 10:00 09/29/19 10:27 09/29/19 08:45 09/29/19 09:16 09/29/19 10:15 Intake & Output 09/28/19 09/29/19 09/30/19 06:59 06:59 06:59 Intake Total 2260 1638 200 Output Total 1735 6350 Balance 525 -4712 200 Weight 70.6 kg 67.5 kg Weight/Height Weight 67.5 kg Height 5 ft 11 in General appearance: PRESENT: no acute distress, disheveled, thin Exam: Nonintubated older appearing 54-year-old male no acute distress. He appears thin and chronically ill Head exam: PRESENT: atraumatic, normocephalic Eye exam: PRESENT: conjunctiva pink, EOMI, PERRLA. ABSENT: conjunctival injection, nystagmus, scleral icterus Ear exam: PRESENT: normal external ear exam Mouth exam: PRESENT: dry mucosa, neck supple, tongue midline Teeth exam: PRESENT: edentulous Throat exam: ABSENT: post pharyngeal erythema Neck exam: PRESENT: full ROM. ABSENT: carotid bruit, JVD, lymphadenopathy, te nderness, thyromegaly, tracheal deviation Respiratory exam: PRESENT: clear to auscultation baljinder, unlabored. ABSENT: accessory muscle use, rales, rhonchi, tachypnea, wheezes Cardiovascular exam: PRESENT: RRR, +S1, +S2 Pulses: PRESENT: +2 pedal pulses bilateral Vascular exam: PRESENT: normal capillary refill. ABSENT: pallor GI/Abdominal exam: PRESENT: normal bowel sounds, soft. ABSENT: ascites, distended, guarding, mass, organolmegaly, rebound, tenderness Rectal exam: PRESENT: deferred Gentrourinary exam: ABSENT: indwelling catheter Extremities exam: ABSENT: pedal edema, +1 edema Musculoskeletal exam: ABSENT: deformity, dislocation Neurological exam: PRESENT: alert, awake, oriented to person, oriented to place, oriented to time, oriented to situation, CN II-XII grossly intact. ABSENT: motor sensory deficit Psychiatric exam: PRESENT: appropriate affect, normal mood Focused psych exam: ABSENT: pressured speech, psychomotor agitation, restlessness Skin exam: PRESENT: dry, intact, normal color, warm. ABSENT: cyanosis, mottled, rash Tubes/Lines: PRESENT: Nasogastic Tube Laboratory/Radiographs Laboratory Results: 09/29/19 04:09 09/29/19 04:09 09/28/19 09/29/19 09/29/19 14:14 04:09 04:09 WBC 14.3 H RBC 3.25 L Hgb 9.7 L Hct 28.6 L MCV 88 MCH 29.9 MCHC 34.0 RDW 17.6 H Plt Count 266 Seg Neutrophils % 85.5 H Carbonic Acid 0.98 L HCO3/H2CO3 Ratio 16:1 ABG pH 7.32 L ABG pCO2 32.7 L ABG pO2 95.8 ABG HCO3 16.3 L ABG O2 Saturation 96.8 ABG Base Excess -9.0 FiO2 30% Sodium 140.9 Potassium 3.2 L Chloride 108 H Carbon Dioxide 22 Anion Gap 11 BUN 17 Creatinine 1.47 H Est GFR ( Amer) > 60 Glucose 87 Calcium 8.6 Phosphorus 2.5 Magnesium 1.4 L Ammonia 09/29/19 04:09 WBC RBC Hgb Hct MCV MCH MCHC RDW Plt Count Seg Neutrophils % Carbonic Acid HCO3/H2CO3 Ratio ABG pH ABG pCO2 ABG pO2 ABG HCO3 ABG O2 Saturation ABG Base Excess FiO2 Sodium Potassium Chloride Carbon Dioxide Anion Gap BUN Creatinine Est GFR ( Amer) Glucose Calcium Phosphorus Magnesium Ammonia < 8.7 L 09/27/19 08:46 Catheterized Urine Urine Culture - Final NO GROWTH 2 DAYS Impressions: Abdomen/Pelvis CT 09/25/19 16:27 IMPRESSION: 1. Atrophic left kidney. No renal or ureteral calculi. No hydronephrosis. 2. Colonic diverticulosis without evidence of diverticulitis. No evidence of bowel obstruction or mass. KUB X-Ray 09/26/19 00:00 IMPRESSION: Tip of the enteric tube likely in the stomach copyright 2011 [employer]- All Rights Reserved Soft Tissue Neck CT 09/26/19 00:00 IMPRESSION: Limited noncontrast CT evaluation the neck without appreciable acute findings. Endotracheal tube terminating with the upper trachea. Partially visualized nasogastric tube. See dedicated CT of the chest. Chest CT 09/26/19 08:00 IMPRESSION: Bibasilar patchy airspace opacities and consolidation, new from CT abdomen performed 1 day prior. Differential considerations include aspiration/pneumonia, atelectasis, and pulmonary edema/ hemorrhage. Linear right apical airspace opacities and ground-glass opacification with mild traction bronchiectasis suggestive of scarring, although an acute infectious process cannot be excluded. Appropriately positioned endotracheal and enteric tubes. Head CT 09/26/19 08:00 IMPRESSION: No acute intracranial hemorrhage, midline shift or mass effect. Chronic he was age related involutional chronic small vessel ischemic changes. Partially visualized endotracheal and nasogastric tubes. Layering secretions within the nasopharynx likely related to tube placement. Additional bubbly opacities within the sphenoid sinuses, which again may be related to recent tube placement, although acute sinusitis cannot be excluded. EVIDENCE OF ACUTE STROKE: NO. Chest X-Ray 09/29/19 06:00 IMPRESSION: Persistent bibasilar airspace disease. Nasogastric tube tip and side port in the stomach All labs, radiographs, diagnostic studies and EKGs were personally reviewed: Yes In addition, reports of radiographic and diagnostic studies were read: Yes Assessment and Plan - Diagnosis (2) Lower GI bleed requiring more than 4 units of blood in 24 hours, ICU, or surgery Is this a current diagnosis for this admission?: Yes (3) Acute on chronic blood loss anemia Is this a current diagnosis for this admission?: Yes (4) Airway compromise Is this a current diagnosis for this admission?: Yes (5) Airway obstruction, anatomic Is this a current diagnosis for this admission?: Yes (6) Delirium due to medical condition with behavioral disturbance Is this a current diagnosis for this admission?: Yes (7) Acute metabolic encephalopathy Is this a current diagnosis for this admission?: Yes (8) AA (alcohol abuse) Is this a current diagnosis for this admission?: Yes (9) Essential hypertension Is this a current diagnosis for this admission?: Yes Plan Summary: 09.29.2019: Patient has improved and his overall status is stabilized. His microbiological profile shows strep pneumonia organisms in his sputum sensitive to multiple antibiotics. ID escalated him to Rocephin and given his overall improvement this can be continued for another 3 to 4 days for a total of 5 to 7 days. Will discontinue NG tube and start clear liquid diet. Start antihypertensive with hydrochlorothiazide. Replace electrolytes today. Follow-up on biopsy of ulcer to determine whether microbiological organisms are the cause for if this is secondary to malignancy. Had a long lengthy discussion with the patient about the use of NSAIDs and specifically instructed not to use them. Patient is suitable for transition to stepdown lower level of care. Continue to monitor his blood pressure. Continue Protonix and Sulcrafate 2020: Respiratory: Patient's respiratory status has improved as well as his chest x- ray. He does show gram-positive growing in his sputum he was very appropriately started on antibiotics in a timely fashion. To that end I am impressed with the improvement in his chest x-ray and the ability for the patient to be on a vent weaning challenge this morning. Plans will be to continue SBT in anticipation for liberation from the ventilator. Of note, the intubation appear to be somewhat difficult with a possible redundant tissue occluding the airway. We will check for cuff leak to determine suitability for liberation. Patient has a small ET tube and fortunately. I have talked to ENT who will evaluate the patient post extubation to determine whether there is need for biopsy or evaluation of excess the tissue that was seen the patient. On my evaluation via glide scope we were able to evaluate what appears to be lymphoid tissue tongue recess however nothing was obstructing the airway and is much as could be evaluated with the presence of an ET tube. Infectious: Patient has aspiration pneumonia and is on appropriate antibiotics. Chest x-ray is improving. Continue to monitor and de-escalate as dictated. Cardiac: No active cardiac issues. No hypotension continue to monitor supporti vely Hematologic: Hemoglobin hematocrit have improved. We consider iron therapy will wait until infection clears. Continue to monitor hemoglobin hematocrit Endocrine: No active issues continue to monitor Renal: Issues continue to monitor Metabolic: Patient appears to have some degree of weight loss with protein calorie malnutrition as evidenced by bitemporal muscle wasting. NG tube in when he is extubated in order to facilitate tube feeding. Alimentary: We will begin tube feeding in 24 hours. Given the fact the patient has protein calorie malnutrition of moderate extent of paramount that he obtain nutrition as quickly as possible Neurologic: Patient appears to have a significant alcohol use disorder but will confirm this when he is extubated. He may need Precedex for liberation from ventilation given his delirium and metabolic encephalopathy Sedation: Weaning propofol and IV fentanyl Lines/Tubes: Peripheral IVs and Chua as well as NG tube Other: Plans for today are to continue SBT with hopes for liberation from ventilator. Check for cuff leak prior to extubation, start tube feeding follow- up on biopsy of ulcer. Continue Protonix and soak her feet therapy. ENT foll ow-up after extubation. No recent steroids given the size and extent of ulcer. 09.27.2019: Respiratory: Patient has respiratory failure related to the need for excessive sedation given his delirium and acute metabolic encephalopathy. In addition he has significant secretions and has evidence to support an aspiration event and is currently on antibiotics. Ventilator pressures were evaluated and they are not excessive. Chest x-ray shows an evolving right middle lobe infiltrate he has been started on antibiotics. We will continue to monitor for suitability for liberation from mechanical ventilation however there appears to be a masslike structure on the tongue and we will try to evaluate that today during the EGD. Continue supportive care with evaluation of peak and plateau pressures given his emphysematous appearance of lungs. Infectious: Follow-up on cultures from respiratory. Continue antibiotics until appropriate to de-escalate Cardiac: Initial minimal decrease in blood pressure did not meet critical value. Overall improved with transfusion. Continue to monitor his hemodynamic status. Hematologic: Patient's hemoglobin hematocrit have drifted down slightly. We will continue to monitor for need for transfusion. He will undergo EGD and colonoscopy to look for source. He has acute blood loss anemia on chronic blood loss anemia given his presentation. Endocrine: No active issues. Evaluation for cortisol deficiency would be undertaken if hypotension or other metabolic aspects ensue Renal: Patient has acute renal failure presumably from volume reduction. It has improved with transfusion. There may be an underlying degree of CKD however this would not be able to be evaluated at this time. Continue gentle IV hydration. Metabolic: Continue to monitor for metabolic instability. Thiamine and folate have been added as well as supplementary vitamins and minerals. Patient has a metabolic encephalopathy presumably related to alcohol withdrawal and and potentially unmeasured medication. Alimentary: N.p.o. for now until EGD and colonoscopy are done. This appears to be a lower GI source but will determine this after testing is complete Neurologic: Significant delirium with encephalopathy causing need for increased sedation leading to the need for protection of his airway. Will need to reduce sedation to evaluate his neurological function and status. Continued vigilance for alcohol withdrawal pathophysiology will need to be maintained Sedation: Propofol and fentanyl drip Versed has been discontinued Lines/Tubes: Peripheral IVs, endotracheal tube and orogastric tube as well as bowel maintenance tube Other: For EGD and colonoscopy today. Type and screen completed 09.26.2019: I personally saw and evaluated the patient after his admission by CLIENT DEVELOPMENT CONSULTANT Sekou. There was significant issues with control of agitation and he had an acute encephalopathy. This progressed to the point that there was need for deeper sedation and concern for airway protection he was intubated. In discussion with the nurse practitioner who intubated him it appears that there was significant soft tissue changes and a very narrow tracheal orifice. CT scan obtained after intubation does not show any significant masses however it is possible given his extensive smoking and alcohol history that there is a tracheal mass. This will need to be evaluated when patient is suitable for liberation from mechanical ventilation. I reviewed his CT scan of his chest and his abdomen and pelvis. He does have significant emphysema but no masses are identifiable. His CT scan of chest today in comparison to yesterday does show evidence of what appears to be aspiration phenomenon. Will need to be vigilant to watch for active pneumonitis and or infection. Patient has anemia which was not hemodynamically significant. A hemoglobin of 4 without acute hemodynamic changes is indicative of a chronic longstanding bleeding issue. In that the NG tube did not show any blood I am concerned that this is of colonic origin and may represent a mass. The plan for this gentleman will be to perform an EGD while we have a appropriately sedated patient who would not be agitated and then progress to colonoscopy. We will begin preparation of lower GI tract as well. His hemoglobin has responded appropriately and he does not appear to be having an active extravasating type bleed. We will continue to monitor his hemoglobin and hematocrit appropriately. His acute encephalopathy and agitation appears to be related to alcohol withdrawal. There is some suggestion that this is been an ongoing issue. His toxicology screen was negative for any recreational ingestants. Given his negative alcohol level his presentation is indicative of a possible delirium related to acute alcohol withdrawal related encephalopathy. He has required significant amount of sedation in the form of propofol and Versed and I have made adjustments to this to try to reduce the amount of Versed he is receiving. We will continue supportive care in the ICU, continue on mechanical ventilation and follow-up on his EGD and colonoscopy studies. Given concern for alcohol use I have placed him on high-dose thiamine therapy as well as folate and zinc. We will also transition him to twice daily Protonix. Critical Time Critical Time (minutes): 0 - 19801 Level of Care: TELE -: 1. The care of a critical patient is a dynamic process. This note is a financial services representative synopsis but static in nature. The timeframe for treatments given in order is not necessarily the actual time these treatments may have been done. 2. This patient requires critical care secondary to ongoing requirements for therapy not offered or safe outside the critical care environment. Transfer to a lower level of care will result in altered life or limb morbidity and mortality. 3. Multidisciplinary rounds completed. 4. ABCDE bundle addressed.
[2019-09-29] MEDS ORDERED: HYDRALAZINE HCL INJ/PF 20 MG/1 ML SDV IV PRN (13:04)
[2019-09-29] MEDS: POTASSI CL 20 MEQ/50 ML RIDER 20 MEQ/50 ML RTUPB IV SCH ×3 (13:23→18:05)
[2019-09-29] MEDS: HYDROCHLOROTHIAZIDE 12.5 MG TABLET PO SCH ×2 (13:23→21:45)
[2019-09-29] MEDS: AMLODIPINE BESYLATE 5 MG TABLET PO SCH (13:23)
[2019-09-29] MEDS: CEFTRIAXONE 2 GM/D5W RTU 2 GM/50 ML RTUPB IV SCH (13:24)
[2019-09-29] MEDS ORDERED: MAGNESIUM SULFATE 4 GM/100 ML RTUPB IV ONE (13:30)
[2019-09-30 05:48] LABS: ABSOLUTE EOSINOPHILS # (AUTO) 0.2 10^3/uL (0.0-0.6); ABSOLUTE LYMPHOCYTES (AUTO) 0.7 10^3/uL (0.5-4.7); ABSOLUTE MONOCYTES (AUTO) 0.8 10^3/uL (0.1-1.4); ABSOLUTE NEUT (AUTO) 7.6 10^3/uL (1.7-8.2); BASOPHILS % (AUTO) 0.4 % (0-2); EOSINOPHILS % (AUTO) 2.5 % (0-6); HEMATOCRIT 30.5 % (37.9-51.0); HEMOGLOBIN 10.4 g/dL (13.5-17.0); LYMPHOCYTES % (AUTO) 7.9 % (13-45); MEAN CORPUSCULAR HGB CONC 34.2 g/dL (32.0-36.0); MEAN CORPUSCULAR VOLUME 88 fl (80-97); MONOCYTES % (AUTO) 8.1 % (3-13); PLATELET COUNT 309 10^3/uL (150-450); RED BLOOD COUNT 3.47 10^6/uL (4.35-5.55); SEGMENTED NEUTROPHILS % (AUTO) 81.1 % (42-78); TOTAL CELLS COUNTED % (AUTO) 100 %; WHITE BLOOD COUNT 9.4 10^3/uL (4.0-10.5)
[2019-09-30 06:06] LABS: ANION GAP 9 (5-19); BLOOD UREA NITROGEN 17 mg/dL (7-20); CALCIUM 8.5 mg/dL (8.4-10.2); CARBON DIOXIDE 27 mmol/L (22-30); CHLORIDE 102 mmol/L (98-107); GLUCOSE 98 mg/dL (75-110); PHOSPHORUS 2.4 mg/dL (2.5-4.5); POTASSIUM 3.5 mmol/L (3.6-5.0)
[2019-09-30] MEDS: SUCRALFATE 1 GM TABLET NG SCH ×4 (07:56→21:19)
[2019-09-30] MEDS: HYDROCHLOROTHIAZIDE 12.5 MG TABLET PO SCH ×2 (11:12→21:19)
[2019-09-30] MEDS: FOLIC ACID 1 MG TABLET NG SCH (11:12)
[2019-09-30] MEDS: AMLODIPINE BESYLATE 5 MG TABLET PO SCH (11:12)
[2019-09-30] MEDS: PANTOPRAZOLE SODIUM 40 MG VIAL IV SCH ×2 (11:16→21:20)
[2019-09-30] MEDS: CEFTRIAXONE 2 GM/D5W RTU 2 GM/50 ML RTUPB IV SCH (11:18)
[2019-09-30] MEDS: THIAMINE HCL 250 MG in NORMAL SALINE 100 ML IV SCH ×2 (12:13→21:20)
--- NOTE | 2019-09-30 19:44 | PDOC PROGRESS REPORT ---
Subjective Progress Note for:: 09/30/19 Subjective:: Patient was admitted in ICU for GI bleed, he underwent EGD found to have a large ulcer in the stomach, he uses ibuprofen on a regular basis for joint pains he also drink alcohol. He has pneumonia with staph and strep culture from the sputum presently on intravenous ceftriaxone. He was seen today by the bedside he has no new complaints normal GI bleed Reason For Visit: GI BLEED Physical Exam Vital Signs: Temp Pulse Resp BP Pulse Ox 98.0 F 80 16 149/69 H 95 09/30/19 16:25 09/30/19 16:25 09/30/19 16:25 09/30/19 16:25 09/30/19 16:25 Intake & Output 09/29/19 09/30/19 10/01/19 06:59 06:59 06:59 Intake Total 1638 1110 1250 Output Total 6350 4125 850 Balance -6407 -5255 400 Weight 67.5 kg 64.8 kg General appearance: PRESENT: no acute distress Eye exam: PRESENT: PERRLA Respiratory exam: PRESENT: rhonchi Cardiovascular exam: PRESENT: +S1, +S2 GI/Abdominal exam: PRESENT: soft Neurological exam: PRESENT: alert, CN II-XII grossly intact Results Laboratory Results: 09/30/19 05:16 09/30/19 05:16 09/30/19 09/30/19 05:16 05:16 WBC 9.4 RBC 3.47 L Hgb 10.4 L Hct 30.5 L MCV 88 MCH 30.0 MCHC 34.2 RDW 18.0 H Plt Count 309 Seg Neutrophils % 81.1 H Sodium 138.1 Potassium 3.5 L Chloride 102 Carbon Dioxide 27 Anion Gap 9 BUN 17 Creatinine 1.13 Est GFR ( Amer) > 60 Glucose 98 Calcium 8.5 Phosphorus 2.4 L Magnesium 2.0 09/27/19 08:46 Tracheal Aspirate Gram Stain - Final 09/27/19 08:46 Tracheal Aspirate Sputum Culture - Final Staphylococcus Aureus Streptococcus Pneumoniae Haemophilus Influenzae Normal Shyla Absent Impressions: Abdomen/Pelvis CT 09/25/19 16:27 IMPRESSION: 1. Atrophic left kidney. No renal or ureteral calculi. No hydronephrosis. 2. Colonic diverticulosis without evidence of diverticulitis. No evidence of bowel obstruction or mass. KUB X-Ray 09/26/19 00:00 IMPRESSION: Tip of the enteric tube likely in the stomach copyright 2011 [employer]- All Rights Reserved Soft Tissue Neck CT 09/26/19 00:00 IMPRESSION: Limited noncontrast CT evaluation the neck without appreciable acute findings. Endotracheal tube terminating with the upper trachea. Partially visualized nasogastric tube. See dedicated CT of the chest. Chest CT 09/26/19 08:00 IMPRESSION: Bibasilar patchy airspace opacities and consolidation, new from CT abdomen performed 1 day prior. Differential considerations include aspiration/pneumonia, atelectasis, and pulmonary edema/ hemorrhage. Linear right apical airspace opacities and ground-glass opacification with mild traction bronchiectasis suggestive of scarring, although an acute infectious process cannot be excluded. Appropriately positioned endotracheal and enteric tubes. Head CT 09/26/19 08:00 IMPRESSION: No acute intracranial hemorrhage, midline shift or mass effect. Chronic he was age related involutional chronic small vessel ischemic changes. Partially visualized endotracheal and nasogastric tubes. Layering secretions within the nasopharynx likely related to tube placement. Additional bubbly opacities within the sphenoid sinuses, which again may be related to recent tube placement, although acute sinusitis cannot be excluded. EVIDENCE OF ACUTE STROKE: NO. Chest X-Ray 09/29/19 06:00 IMPRESSION: Persistent bibasilar airspace disease. Nasogastric tube tip and side port in the stomach Assessment & Plan - Diagnosis (1) Acute gastrointestinal hemorrhage Is this a current diagnosis for this admission?: Yes (2) Metabolic encephalopathy Is this a current diagnosis for this admission?: Yes (3) Acute kidney injury Is this a current diagnosis for this admission?: Yes (4) Alcohol abuse, uncomplicated Is this a current diagnosis for this admission?: Yes (5) Pneumonia Qualifiers: Pneumonia type: due to methicillin-sensitive Staphylococcus aureus (MSSA) Laterality: bilateral Lung location: lower lobe of lung Qualified Code(s): J15.211 - Pneumonia due to Methicillin susceptible Staphylococcus aureus Is this a current diagnosis for this admission?: Yes Plan: Continue IV antibiotic - Time Time Spent with patient: 25-34 minutes Level of Care: MEDICAL Medications reviewed and adjusted accordingly: Yes
[2019-10-01 08:31] VITALS: BP 128/75
--- NOTE | 2019-10-01 08:38 | PDOC DISCHARGE SUMMARY ---
Impression - Admit/DC Date/PCP Admission Date/Primary Care Provider: 09/25/19 22:00 VINICIO MIRANDA MD Discharge Date: 10/01/19 - Discharge Diagnosis (1) Gastric ulcer with hemorrhage Is this a current diagnosis for this admission?: Yes (2) Acute gastrointestinal hemorrhage Is this a current diagnosis for this admission?: Yes (3) Metabolic encephalopathy Is this a current diagnosis for this admission?: Yes (4) Acute kidney injury Is this a current diagnosis for this admission?: Yes (5) Alcohol abuse, uncomplicated Is this a current diagnosis for this admission?: Yes (6) Pneumonia Is this a current diagnosis for this admission?: Yes (7) Gastric ulcer due to nonsteroidal anti-inflammatory drug (NSAID) Is this a current diagnosis for this admission?: Yes - Additional Information Resuscitation Status: Full Code Discharge Diet: As Tolerated Discharge Activity: Activity As Tolerated, Balance Activity w/Rest Referrals: VINICIO MIRANDA MD [Primary Care Provider] - 10/08/19 9:45 am Prescriptions: Sucralfate [Carafate 1 gm Tablet] 1 gm NG ACHS #120 tablet Folic Acid [Folvite 1 mg Tablet] 1 mg NG DAILY #90 tablet Amlodipine Besylate [Norvasc 5 mg Tablet] 5 mg PO DAILY #90 tablet Pantoprazole Sodium [Protonix] 40 mg PO DAILY #90 tablet. Thiamine HCl [Thiamine 100 mg Tablet] 100 mg PO DAILY #90 tablet Azithromycin [Zithromax] 250 mg PO DAILY #7 tablet Home Medications: Amlodipine Besylate [Norvasc 5 mg Tablet] 5 mg PO DAILY #90 tablet 09/30/19 Azithromycin [Zithromax] 250 mg PO DAILY #7 tablet 09/30/19 Folic Acid [Folvite 1 mg Tablet] 1 mg NG DAILY #90 tablet 09/30/19 Pantoprazole Sodium [Protonix] 40 mg PO DAILY #90 tablet. 09/30/19 Sucralfate [Carafate 1 gm Tablet] 1 gm NG ACHS #120 tablet 09/30/19 Thiamine HCl [Thiamine 100 mg Tablet] 100 mg PO DAILY #90 tablet 09/30/19 History of Present Illiness History of Present Illness: OVIDIO CORONA is a 54 year old male with no known past medical history. Presen mark to the ED with a 2-day history of dizziness and fatigue was noted to have dark stools and hematemesis in the ED his initial H&H was 4.1/12.9. He received 2 units of PRBC with appropriate rise in his H&H to 6.1/18.2, CT scan of the abdomen pelvis was done which showed colonic diverticulosis without evidence of diverticulitis no evidence of bowel obstruction or mass. NG tube was placed and per the ER physician produced dark blood with clots, now with minimal output of coffee-ground drainage. Patient has had no history of a previous GI bleed, does state he has been taking ibuprofen for chronic generalized pain. He has remained hemodynamically stable with a heart rate 88 blood pressure 127/60 O2 sat 99% on room air. Dr. Candelaria was consulted and patient admitted to the ICU for further management. Hospital Course Hospital Course: Patient presented to the emergency room with severe anemia, NG tube was passed the emergency room he was found to be bleeding, he was admitted into intensive care unit, he was managed initially by the application analyst and the surgeon. He was transfused with many units of packed red blood cells, he underwent upper endoscopy he had a gastric ulcer, negative for malignancy, negative for H. pylori. Patient with a history of use of NSAID specifically ibuprofen on a daily basis for the management of arthritic pain. He also drinks alcohol, he was stabilized in the emergency room initially managedin intensive care unit subsequently downgraded to medical floor. Also found to have pneumonia, sputum culture grew strep and staph sensitive to azithromycin. When I saw him on the floor he was stable enough for discharge. Physical Exam Vital Signs: Temp Pulse Resp BP Pulse Ox 98.4 F 73 17 128/75 H 96 10/01/19 08:00 10/01/19 08:00 10/01/19 08:00 10/01/19 07:46 10/01/19 08:00 Intake & Output 09/30/19 10/01/19 10/02/19 06:59 06:59 06:59 Intake Total 1110 1900 Output Total 4125 1450 Balance -3015 450 Weight 64.8 kg 63.8 kg Results Laboratory Results: WBC 9.4 10^3/uL (4.0-10.5) 09/30/19 05:16 RBC 3.47 10^6/uL (4.35-5.55) L 09/30/19 05:16 Hgb 10.4 g/dL (13.5-17.0) L 09/30/19 05:16 Hct 30.5 % (37.9-51.0) L 09/30/19 05:16 MCV 88 fl (80-97) 09/30/19 05:16 MCH 30.0 pg (27.0-33.4) 09/30/19 05:16 MCHC 34.2 g/dL (32.0-36.0) 09/30/19 05:16 RDW 18.0 % (11.5-14.0) H 09/30/19 05:16 Plt Count 309 10^3/uL (150-450) 09/30/19 05:16 Lymph % (Auto) 7.9 % (13-45) L 09/30/19 05:16 [place] % (Auto) 8.1 % (3-13) 09/30/19 05:16 Eos % (Auto) 2.5 % (0-6) 09/30/19 05:16 Baso % (Auto) 0.4 % (0-2) 09/30/19 05:16 Absolute Neuts (auto) 7.6 10^3/uL (1.7-8.2) 09/30/19 05:16 Absolute Lymphs (auto) 0.7 10^3/uL (0.5-4.7) 09/30/19 05:16 Absolute Monos (auto) 0.8 10^3/uL (0.1-1.4) 09/30/19 05:16 Absolute Eos (auto) 0.2 10^3/uL (0.0-0.6) 09/30/19 05:16 Absolute Basos (auto) 0.0 10^3/uL (0.0-0.2) 09/30/19 05:16 Total Counted 100 09/25/19 15:24 Seg Neutrophils % 81.1 % (42-78) H 09/30/19 05:16 Seg Neuts % (Manual) 86 % (42-78) H 09/25/19 15:24 Lymphocytes % (Manual) 10 % (13-45) L 09/25/19 15:24 Monocytes % (Manual) 4 % (3-13) 09/25/19 15:24 Eosinophils % (Manual) 0 % (0-6) 09/25/19 15:24 Basophils % (Manual) 0 % (0-2) 09/25/19 15:24 Abs Neuts (Manual) 9.7 10^3/uL (1.7-8.2) H 09/25/19 15:24 Abs Lymphs (Manual) 1.1 10^3/uL (0.5-4.7) 09/25/19 15:24 Abs Monocytes (Manual) 0.5 10^3/uL (0.1-1.4) 09/25/19 15:24 Absolute Eos (Manual) 0.0 10^3/uL (0.0-0.6) 09/25/19 15:24 Abs Basophils (Manual) 0.0 10^3/uL (0.0-0.2) 09/25/19 15:24 Platelet Estimate Cancelled 09/25/19 14:35 Large Platelets PRESENT 09/25/19 15:24 Platelet Comment ADEQUATE 09/25/19 15:24 Polychromasia SLIGHT 09/25/19 15:24 Hypochromasia 1+ 09/25/19 15:24 Poikilocytosis 1+ 09/25/19 15:24 Anisocytosis 3+ 09/25/19 15:24 Target Cells SLIGHT 09/25/19 15:24 Ovalocytes 1+ 09/25/19 15:24 PT 14.1 SEC (11.4-15.4) 09/28/19 05:00 INR 1.09 09/28/19 05:00 APTT 35.4 SEC (23.5-35.8) 09/28/19 05:00 Carbonic Acid 0.98 mmol/L (1.05-1.35) L 09/28/19 14:14 HCO3/H2CO3 Ratio 16:1 09/28/19 14:14 ABG pH 7.32 (7.35-7.45) L 09/28/19 14:14 ABG pCO2 32.7 mmHg (35-45) L 09/28/19 14:14 ABG pO2 95.8 mmHg (80-100) 09/28/19 14:14 ABG HCO3 16.3 mmol/L (20-24) L 09/28/19 14:14 ABG Total CO2 17.3 mmol/L (23-27) L 09/28/19 14:14 ABG O2 Saturation 96.8 % (94-98) 09/28/19 14:14 ABG Base Excess -9.0 mmol/L 09/28/19 14:14 FiO2 30% 09/28/19 14:14 Sodium 138.1 mmol/L (137-145) 09/30/19 05:16 Potassium 3.5 mmol/L (3.6-5.0) L 09/30/19 05:16 Chloride 102 mmol/L (98-107) 09/30/19 05:16 Carbon Dioxide 27 mmol/L (22-30) 09/30/19 05:16 Anion Gap 9 (5-19) 09/30/19 05:16 BUN 17 mg/dL (7-20) 09/30/19 05:16 Creatinine 1.13 mg/dL (0.52-1.25) 09/30/19 05:16 Est GFR ( Amer) > 60 (>60) 09/30/19 05:16 Est GFR (MDRD) Non-Af > 60 (>60) 09/30/19 05:16 Glucose 98 mg/dL (75-110) 09/30/19 05:16 POC Glucose 108 mg/dL (70-110) 09/26/19 06:12 Calcium 8.5 mg/dL (8.4-10.2) 09/30/19 05:16 Phosphorus 2.4 mg/dL (2.5-4.5) L 09/30/19 05:16 Magnesium 2.0 mg/dL (1.6-2.3) 09/30/19 05:16 Total Bilirubin 0.5 mg/dL (0.2-1.3) 09/28/19 05:00 Direct Bilirubin 0.0 mg/dL (0.0-0.4) 09/28/19 05:00 Neonat Total Bilirubin Not Reportable 09/28/19 05:00 Neonat Direct Bilirubin Not Reportable 09/28/19 05:00 Neonat Indirect Bili Not Reportable 09/28/19 05:00 AST 43 U/L (17-59) 09/28/19 05:00 ALT 15 U/L (<50) 09/28/19 05:00 Alkaline Phosphatase 61 U/L (38-126) 09/28/19 05:00 Ammonia < 8.7 umol/L (9-33) L 09/29/19 04:09 Total Protein 5.1 g/dL (6.3-8.2) L 09/28/19 05:00 Albumin 2.6 g/dL (3.5-5.0) L 09/28/19 05:00 Carcinoembryonic Ag 0.88 ng/mL (<3.0) 09/27/19 03:22 CA 19-9 Antigen 1 U/mL (0-35) 09/26/19 04:29 Urine Color STRAW 09/26/19 03:00 Urine Appearance CLEAR 09/26/19 03:00 Urine pH 5.0 (5.0-9.0) 09/26/19 03:00 Ur Specific [place] 1.013 09/26/19 03:00 Urine Protein 30 mg/dL (NEGATIVE) H 09/26/19 03:00 Urine Glucose (UA) NEGATIVE mg/dL (NEGATIVE) 09/26/19 03:00 Urine Ketones NEGATIVE mg/dL (NEGATIVE) 09/26/19 03:00 Urine Blood SMALL (NEGATIVE) H 09/26/19 03:00 Urine Nitrite NEGATIVE (NEGATIVE) 09/26/19 03:00 Urine Bilirubin NEGATIVE (NEGATIVE) 09/26/19 03:00 Urine Urobilinogen NEGATIVE mg/dL (<2.0) 09/26/19 03:00 Ur Leukocyte Esterase NEGATIVE (NEGATIVE) 09/26/19 03:00 Urine WBC (Auto) 0 /HPF 09/26/19 03:00 Urine RBC (Auto) 0 /HPF 09/26/19 03:00 Urine Mucus (Auto) RARE /LPF 09/26/19 03:00 Urine Ascorbic Acid NEGATIVE (NEGATIVE) 09/26/19 03:00 POC Stool Occult Blood POSITIVE (NEGATIVE) 09/25/19 16:58 Salicylates < 1.0 mg/dL (2.0-20.0) L 09/28/19 15:41 Urine Opiates Screen NEGATIVE 09/26/19 03:00 Urine Methadone Screen NEGATIVE 09/26/19 03:00 Acetaminophen < 10 ug/mL (10-30) L 09/28/19 15:41 Ur Barbiturates Screen NEGATIVE 09/26/19 03:00 Ur Phencyclidine Scrn NEGATIVE 09/26/19 03:00 Ur Amphetamines Screen NEGATIVE 09/26/19 03:00 U Benzodiazepines Scrn NEGATIVE 09/26/19 03:00 Urine Cocaine Screen NEGATIVE 09/26/19 03:00 U Marijuana (THC) Screen NEGATIVE 09/26/19 03:00 Serum Alcohol < 10 mg/dL (NONE DETECTED) 09/25/19 14:35 Slides for Path Review PATHOLOGIST REVIEWED 09/25/19 15:24 Blood Type O POSITIVE 09/25/19 15:28 Blood Type Confirm Cancelled 09/25/19 20:28 Antibody Screen NEGATIVE 09/25/19 15:28 Crossmatch See Detail 09/25/19 15:28 Impressions: Abdomen/Pelvis CT 09/25/19 16:27 IMPRESSION: 1. Atrophic left kidney. No renal or ureteral calculi. No hydronephrosis. 2. Colonic diverticulosis without evidence of diverticulitis. No evidence of bowel obstruction or mass. Chest X-Ray 09/26/19 00:00 IMPRESSION: Endotracheal tube in appropriate position. KUB X-Ray 09/26/19 00:00 IMPRESSION: Tip of the enteric tube likely in the stomach copyright 2011 [employer]- All Rights Reserved Soft Tissue Neck CT 09/26/19 00:00 IMPRESSION: Limited noncontrast CT evaluation the neck without appreciable acute findings. Endotracheal tube terminating with the upper trachea. Partially visualized nasogastric tube. See dedicated CT of the chest. Chest CT 09/26/19 08:00 IMPRESSION: Bibasilar patchy airspace opacities and consolidation, new from CT abdomen performed 1 day prior. Differential considerations include aspiration/pneumonia, atelectasis, and pulmonary edema/ hemorrhage. Linear right apical airspace opacities and ground-glass opacification with mild traction bronchiectasis suggestive of scarring, although an acute infectious process cannot be excluded. Appropriately positioned endotracheal and enteric tubes. Head CT 09/26/19 08:00 IMPRESSION: No acute intracranial hemorrhage, midline shift or mass effect. Chronic he was age related involutional chronic small vessel ischemic changes. Partially visualized endotracheal and nasogastric tubes. Layering secretions within the nasopharynx likely related to tube placement. Additional bubbly opacities within the sphenoid sinuses, which again may be related to recent tube placement, although acute sinusitis cannot be excluded. EVIDENCE OF ACUTE STROKE: NO. Chest X-Ray 09/28/19 06:00 IMPRESSION: Persistent right and left lower lobe pneumonia Chest X-Ray 09/29/19 06:00 IMPRESSION: Persistent bibasilar airspace disease. Nasogastric tube tip and side port in the stomach Stroke Is this a Stroke Patient?: No Acute Heart Failure - Is this a Heart Failure Patient?: No
[2019-10-01] MEDS: HYDROCHLOROTHIAZIDE 12.5 MG TABLET PO SCH (10:35)
[2019-10-01] MEDS: AMLODIPINE BESYLATE 5 MG TABLET PO SCH (10:35)
[2019-10-01] MEDS: FOLIC ACID 1 MG TABLET NG SCH (10:35)
[2019-10-01] MEDS: SUCRALFATE 1 GM TABLET NG SCH (10:36)
[2019-10-01] MEDS: PANTOPRAZOLE SODIUM 40 MG VIAL IV SCH (10:37)
[2019-10-01] MEDS: CEFTRIAXONE 2 GM/D5W RTU 2 GM/50 ML RTUPB IV SCH (10:37)
[2019-10-01] MEDS: THIAMINE HCL 250 MG in NORMAL SALINE 100 ML IV SCH (10:38)
== END 2019-10-01 11:32 | disposition home or self-care (01) | DRG 377 ==
LOC: ER 13:15 → EH 22:00 → ICU 23:52 → 4N 09-29 17:51
PROVIDERS: ADMIT Internal Medicine; ATTEND Internal Medicine
PROC: 30233N1 Transfusion of Nonautologous Red Blood Cells into Peripheral Vein, Percutaneous Approach (ICD-10-PCS; principal; 2019-09-25)
PROC: 30233N1 Transfusion of Nonautologous Red Blood Cells into Peripheral Vein, Percutaneous Approach (ICD-10-PCS; 2019-09-26)
PROC: 5A1945Z Respiratory Ventilation, 24-96 Consecutive Hours (ICD-10-PCS; 2019-09-26)
PROC: 0BH17EZ Insertion of Endotracheal Airway into Trachea, Via Natural or Artificial Opening (ICD-10-PCS; 2019-09-26)
PROC: 0DB78ZX Excision of Stomach, Pylorus, Via Natural or Artificial Opening Endoscopic, Diagnostic (ICD-10-PCS; 2019-09-27)
PROC: 0DJD8ZZ Inspection of Lower Intestinal Tract, Via Natural or Artificial Opening Endoscopic (ICD-10-PCS; 2019-09-27)
PROC: 30233N1 Transfusion of Nonautologous Red Blood Cells into Peripheral Vein, Percutaneous Approach (ICD-10-PCS; 2019-09-27)
DX: K25.4 Chronic or unspecified gastric ulcer with hemorrhage (principal); J69.0 Pneumonitis due to inhalation of food and vomit; J15.211 Pneumonia due to Methicillin susceptible Staphylococcus aureus; F10.231 Alcohol dependence with withdrawal delirium; D62 Acute posthemorrhagic anemia; E46 Unspecified protein-calorie malnutrition; Z68.1 Body mass index [BMI] 19.9 or less, adult; J98.8 Other specified respiratory disorders; K92.1 Melena; M25.569 Pain in unspecified knee; G31.2 Degeneration of nervous system due to alcohol; F17.210 Nicotine dependence, cigarettes, uncomplicated; Y90.0 Blood alcohol level of less than 20 mg/100 ml; Z79.1 Long term (current) use of non-steroidal anti-inflammatories (NSAID)
CPT/HCPCS: 31500; 36415; 36430; 43239; 45378; 70450; 70490; 71045; 71250; 74018; 74176; 80048; 80053; 80307; 81001; 82140; 82270; 82378; 82803; 82962; 83735; 84100; 85025; 85610; 85730; 86301; 86850; 86900; 86901; 86920; 87040; 87070; 87077; 87086; 87186; 87205; 88305; 88341; 88342; 93005; 93010; 94002; 94003; 94640; 94799; 96361; 96374; 99221; 99291; 99292; C9113; J0171; J0360; J0696; J1200; J1610; J1630; J1940; J2060; J2250; J2310; J2405; J2543; J2704; J3010; J3411; J3475; J3480; J3490; J7030; J7050; J7120; P9016